=== PATIENT | male | born 1940 | race Caucasian/White ===

== ENCOUNTER 2018-06-15 16:46 | Inpatient (IN) | payer OTHER ==
[~2018-06-15] VITALS: Ht 177.8 cm; Wt 85.8 kg
[2018-06-15] MEDS ORDERED: ONDANSETRON 4 MG INJ IV STA (17:12)
[2018-06-15] MEDS ORDERED: morphine 4 MG/ML VIAL IV STA (17:12)
[2018-06-15] MEDS ORDERED: SODIUM CHLORIDE 0.9% 1L BAG IV* STA (17:46)
[2018-06-15] MEDS ORDERED: CEFTRIAXONE 1 GM/50 ML (PMX) 50 ML IVPB STA (17:46)
[2018-06-15] MEDS ORDERED: ONDANSETRON 4 MG INJ IV PRN (18:30)
[2018-06-15] MEDS ORDERED: ACETAMINOPHEN 325 MG TAB PO PRN (18:30)
--- NOTE | 2018-06-15 19:08 | ERD ---
ER Documentation Chief Complaint Chief Complaint prostate surgery 5 days ago, paina nd bleeding from rectum 09/25 HPI Patient is a 77-year-old male who presents with hematuria. The patient had his prostate removed [address] Alba. His Simon catheter was removed and he was urinating fine but then started with blood from the penis and clots. He had urinary retention. He was seen by Dr. Alba in the office and was sent to the emergency department for Simon catheter placement. Dr. Alba has placed the catheter and recommended three-way irrigation and admission. ROS All systems reviewed and are negative except as per history of present illness. Allergies Allergies: Coded Allergies: No Known Allergy (Unverified , 06/15/18) PMhx/Soc History of Surgery: Yes (PROSTATE SURGERY) Anesthesia Reaction: No Hx Neurological Disorder: No Hx Respiratory Disorders: No Hx Cardiac Disorders: No Hx Psychiatric Problems: No Hx Miscellaneous Medical Probl: No Hx Alcohol Use: No Hx Substance Use: No Hx Tobacco Use: No Smoking Status: Never smoker FmHx Family History: No diabetes Physical Exam Vitals Vital Signs Date Temp Pulse Resp B/P (MAP) Pulse Ox O2 O2 Flow FiO2 Time Delivery Rate 06/15/18 37.0 18:48 06/15/18 98.6 79 14 114/55 100 Room Air 18:32 (74) 06/15/18 98.6 101 18 110/55 96 17:02 (73) Physical Exam Const: Moderate distress Head: Atraumatic Eyes: Normal Conjunctiva ENT: Normal External Ears, Nose and Mouth. Neck: Full range of motion. No meningismus. Resp: Clear to auscultation bilaterally Cardio: Regular rate and rhythm, no murmurs Abd: Soft, non tender, non distended. Normal bowel sounds Skin: No petechiae or rashes Back: No midline or flank tenderness Ext: No cyanosis, or edema Neur: Awake and alert : Clots from penis with tenderness over the bladder, uncircumcised Result Diagram: 06/15/18 1728 06/15/18 1728 Results 24 hrs Laboratory Tests Test 06/15/18 17:28 06/15/18 18:51 White Blood Count 22.0 10^3/ul Red Blood Count 3.78 10^6/ul Hemoglobin 9.4 g/dl Hematocrit 29.8 % Mean Corpuscular Volume 78.8 fl Mean Corpuscular Hemoglobin 24.9 pg Mean Corpuscular Hemoglobin Concent 31.5 g/dl Red Cell Distribution Width 18.7 % Platelet Count 265 10^3/UL Mean Platelet Volume 11.3 fl Immature Granulocytes % 2.300 % Neutrophils % 88.3 % Lymphocytes % 5.1 % Monocytes % 4.1 % Eosinophils % 0.0 % Basophils % 0.2 % Nucleated Red Blood Cells % 0.0 /100WBC Immature Granulocytes # 0.500 10^3/ul Neutrophils # 19.4 10^3/ul Lymphocytes # 1.1 10^3/ul Monocytes # 0.9 10^3/ul Eosinophils # 0.0 10^3/ul Basophils # 0.0 10^3/ul Nucleated Red Blood Cells # 0.0 10^3/ul Prothrombin Time 14.8 Sec Prothrombin Time Ratio 1.2 INR International Normalized Ratio 1.15 Activated Partial Thromboplast Time 41.7 Sec Sodium Level 136 mmol/L Potassium Level 5.4 mmol/L Chloride Level 104 mmol/L Carbon Dioxide Level 18 mmol/L Anion Gap 14 Blood Urea Nitrogen 27 mg/dl Creatinine 2.74 mg/dl Est Glomerular Filtrat Rate mL/min mL/min Glucose Level 124 mg/dl Calcium Level 9.4 mg/dl POC Venous Lactate 1.3 mmol/L Current Medications Medications Dose Sig/Jessica Start Time Status Last (Trade) Ordered Route PRN Stop Time Admin Dose Reason Admin Morphine 4 mg ONCE STAT 06/15/18 DC 06/15/18 Sulfate IV 17:12 17:34 (morphine) 06/15/18 17:13 Ondansetron 4 mg ONCE STAT 06/15/18 DC 06/15/18 HCl (Zofran IV 17:12 17:34 Inj) 06/15/18 17:13 Sodium 2,650 ml BOLUS OVER 2 06/15/18 DC 06/15/18 Chloride HOURS STAT 17:46 17:46 (NS) IV* 06/15/18 17:47 Ceftriaxone 50 ml @ ONCE STAT 06/15/18 DC 06/15/18 Sodium 100 mls/hr IVPB 17:46 17:46 06/15/18 18:15 Ondansetron 4 mg BRIDGE ORDER 06/15/18 06/15/18 HCl (Zofran PRN IV 18:30 06/16/18 18:48 Inj) NAUSEA/VOMITI 18:29 NG 650 mg ER BRIDGE 06/15/18 06/15/18 Acetaminophen PRN PO 18:30 06/16/18 18:48 (Tylenol .MILD PAIN 18:29 Tab) 1-3 OR TEMP Procedures/MDM Sepsis Documentation: Patient's infectious symptoms have not stabilized and the patient is at risk of rapid decompensation. The patient will be admitted for careful hydration, antibiotic therapy, and infectious source control. SEVERE SEPSIS CRITERIA: Infectious source: Epididymitis End organ damage indicated by: Creatinine greater than 2 SEPSIS MANAGEMENT Time of recognition of sepsis: 1727. Time of recognition of severe sepsis: 1727. Time of recognition of septic shock: No septic shock at this time. 3 HOUR BUNDLE Blood cultures x 2 before broad-spectrum antibiotics: Yes 30 ml/kg NS bolus completed Initial lactate 1.4 Repeat lactate pending SEPTIC SHOCK ASSESSMENT: No lactic acid > 4.0 No persistent hypotension (SBP < 90 or 40 mmHg drop, MAP < 65) despite 30 mL/kg IV fluid bolus VOLUME REASSESSMENT FOR SEPTIC SHOCK: No septic shock at this time PERSISTENT HYPOTENSION TREATMENT: Comfort care no Central line not Required Vasopressor started not required I considered further perfusion assessment with CVP measurement, SCVO2, bedside ultrasound volume assessment, passive leg raise, trial of further fluid bolus. And proceeded with 30 ml/kg fluid bolus of NSS, broad spectrum antibiotics, and admission. The patient will be admitted to a medical surgical bed to the care of Dr. Thapa and will be seen by urology while admitted. CRITICAL CARE Critical care time 35 minutes Emergent fluid management while maintaining close respiratory support. Provision of immediate and broad-spectrum antibiotic therapy. Simultaneous assessment for possible sources in order to direct targeted therapy. Consideration for invasive and chemical support to prevent cardiopulmonary collapse. Critical care time is independent of procedures performed. Departure Diagnosis: Primary Impression: Acute epididymitis Additional Impressions: Hematuria Hematuria type: unspecified type Qualified Codes: R31.9 - Hematuria, unspecified Severe sepsis Condition: GABRIELA Hansen MD Jun 15, 2018 19:08
--- NOTE | 2018-06-15 19:43 | CONS ---
Assessment/Plan Assessment/Plan Hospital Course (Demo Recall) 77-year-old male who was having hematuria and urinary retention. He underwent suprapubic prostatectomy about 10 days earlier. He was discharged home and on June 14, 2018 he came into the office and I removed his murtaza and the Simon catheter. The patient was voiding well during the day however around 2 AM at night he had a blood clot and started bleeding in his urine. He went to the [place] urgent care. They inserted the catheter and had blood. I was called and I had him come to the office. I inserted a 22 [place] catheter and try to irrigate the bladder however since he was going to need to continuous bladder irrigation he needs to be admitted to the hospital I sent him to the emergency room [facility] and saw him in the emergency room, inserted a 24 [place] three-way Simon catheter. I irrigated the clots out of the bladder and started him on continuous bladder irrigation. I put the catheter on traction to try to tamponade any bleeder. The balloon of the catheter is inflated with 60 mL of sterile water. We will keep the irrigation of the bladder and if the urine is clear release the traction first then if the urine remains clear stop the irrigation. If the urine remains clear that he will be discharged home with a Simon catheter and he will follow-up with my office around June 28, 2018. Consultation Date/Type/Reason Admit Date/Time June 15, 2018 Date of Consultation: Jun 15, 2018 Type of Consult Urology Reason for Consultation Gross hematuria, patient status post suprapubic prostatectomy about 10 days earlier. Requesting Provider: HARISH SRINIVASAN MD Date/Time of Note DATE: 06/15/18 TIME: 19:34 Hx of Present Illness 77-year-old male who was having hematuria and urinary retention. He underwent suprapubic prostatectomy about 10 days earlier. He was discharged home and on June 14, 2018 he came into the office and I removed his murtaza and the Simon catheter. The patient was voiding well during the day however around 2 AM at night he had a blood clot and started bleeding in his urine. He went to the [place] urgent care. They inserted the catheter and had blood. I was called and I had him come to the office. I inserted a 22 [place] catheter and try to irrigate the bladder however since he was going to need to continuous bladder irrigation he needs to be admitted to the hospital I sent him to the emergency room but [facility] and saw him in the emergency room, inserted a 24 [place] three-way Simon catheter. I irrigated the clots out of the bladder and started him on continuous bladder irrigation. I put the catheter on traction to try to tamponade any bleeder. The balloon of the catheter is inflated with 60 mL of sterile water. Past Medical History Medications Current Medications Ondansetron HCl (Zofran Inj) 4 mg BRIDGE ORDER PRN IV NAUSEA/VOMITING Last administered on 06/15/18at 18:48; Admin Dose 4 MG; Start 06/15/18 at 18:30; Stop 06/16/18 at 18:29 Acetaminophen (Tylenol Tab) 650 mg ER BRIDGE PRN PO .MILD PAIN 1-3 OR TEMP Last administered on 06/15/18at 18:48; Admin Dose 650 MG; Start 06/15/18 at 18:30; Stop 06/16/18 at 18:29 Allergies: Coded Allergies: No Known Allergy (Unverified , 06/15/18) Past Surgical History Past Surgical Hx: other (Suprapubic prostatectomy.) Social History Smoking Status: Never smoker Exam/Review of Systems Exam Vitals Vital Signs Date Temp Pulse Resp B/P (MAP) Pulse Ox O2 O2 Flow FiO2 Time Delivery Rate 06/15/18 37.0 18:48 06/15/18 79 14 114/55 100 Room Air 18:32 (74) Constitutional: alert Psych: no complaints Head: atraumatic Eyes: nl conjunctiva ENMT: nl external ears & nose Neck: supple Respiratory: normal air movement; No wheezing Gastrointestinal: soft Genitourinary - Male: other (Suprapubic tenderness and gross hematuria. The suprapubic incision is healing well and no sign of infection. However the patient does have tender very sensitive left testicle possible left epididymitis.) Musculoskeletal: nl extremities to inspection Extremities: No calf tenderness Results Result Diagram: 06/15/18 1728 06/15/18 1728 Results 24hrs Laboratory Tests Test 06/15/18 17:28 06/15/18 18:46 06/15/18 18:51 White Blood Count 22.0 H Red Blood Count 3.78 L Hemoglobin 9.4 L Hematocrit 29.8 L Mean Corpuscular Volume 78.8 L Mean Corpuscular Hemoglobin 24.9 L Mean Corpuscular Hemoglobin Concent 31.5 L Red Cell Distribution Width 18.7 H Platelet Count 265 Mean Platelet Volume 11.3 H Immature Granulocytes % 2.300 H Neutrophils % 88.3 H Lymphocytes % 5.1 L Monocytes % 4.1 Eosinophils % 0.0 Basophils % 0.2 Nucleated Red Blood Cells % 0.0 Immature Granulocytes # 0.500 H Neutrophils # 19.4 H Lymphocytes # 1.1 Monocytes # 0.9 Eosinophils # 0.0 Basophils # 0.0 Nucleated Red Blood Cells # 0.0 Prothrombin Time 14.8 Prothrombin Time Ratio 1.2 INR International Normalized Ratio 1.15 Activated Partial Thromboplast Time 41.7 H Sodium Level 136 Potassium Level 5.4 H Chloride Level 104 Carbon Dioxide Level 18 L Anion Gap 14 H Blood Urea Nitrogen 27 H Creatinine 2.74 H Est Glomerular Filtrat Rate mL/min Glucose Level 124 Calcium Level 9.4 Lactic Acid Level 1.2 POC Venous Lactate 1.3 Medications Medication Current Medications Ondansetron HCl (Zofran Inj) 4 mg BRIDGE ORDER PRN IV NAUSEA/VOMITING Last administered on 06/15/18at 18:48; Admin Dose 4 MG; Start 06/15/18 at 18:30; Stop 06/16/18 at 18:29 Acetaminophen (Tylenol Tab) 650 mg ER BRIDGE PRN PO .MILD PAIN 1-3 OR TEMP Last administered on 06/15/18at 18:48; Admin Dose 650 MG; Start 06/15/18 at 18:30; Stop 06/16/18 at 18:29 ASHLEY VAUGHAN MD Jun 15, 2018 19:43
[2018-06-15] MEDS ORDERED: AMLO-147 PO (22:19)
[2018-06-15] MEDS ORDERED: ALLO300T2 PO (22:19)
[2018-06-15] MEDS ORDERED: LISI-471 PO (22:19)
[2018-06-15 22:33] VITALS: Ht 177.8 cm; Wt 85.8 kg
[2018-06-15 22:51] VITALS: BP 122/57; PULSE 83; RESP 20
[2018-06-15] MEDS ORDERED: ZOLPIDEM 5 MG TAB PO PRN (23:00)
[2018-06-15] MEDS: DEXTROSE 5%-0.45% NACL 1,000 ML IV SCH (23:54)
[2018-06-16 01:59] VITALS: BP 114/56; PULSE 69; RESP 20
[2018-06-16 08:23] VITALS: BP 128/60; PULSE 77; RESP 16
[2018-06-16] MEDS ORDERED: CEFTRIAXONE 1 GM INJ IVPB SCH (09:00)
[2018-06-16] MEDS: AMLODIPINE 10 MG TAB PO SCH (09:00)
--- NOTE | 2018-06-16 09:06 | CONS ---
DATE OF ADMISSION: 06/15/2018 DATE OF CONSULTATION: 06/16/2018 SUBJECTIVE: The patient is status post open prostatectomy with subsequent gross hematuria and epidid ymitis. The patient is currently on Rocephin overnight. The patient has been doing well without any noted difficulty. The patient's CBI initially was on traction this morning. He continues on CBI wi thout any traction. PHYSICAL EXAMINATION: GENERAL: Comfortable in bed. ABDOMEN: Soft, nondistended, nontender, no palpable masses. Midline wound clean, dry and intact. F lank, no CVA tenderness, no masses. GENITALIA: Normal shaft penis. Normal scrotum. Left testicle is firm and indurated and enlarged an d tender. Normal right testicle, slow CBI draining light pink urine. LABORATORY DATA: Yesterday, the patient's white count of 22,000. Today, his white count is 11,000, hemoglobin 9.4 yesterday, today is 7.6. Creatinine yesterday 2.7, today creatinine is 2.0, blood pre ssure 114/56, respirations 20, heart rate 69, temperature 97.9. CBI was discontinued and Simon robert ter was irrigated, multiple clots were removed, but these appeared to be chronic in nature. CBI was reinitiated and efflux was noted to be clear. This was left off of gravity drainage. IMPRESSION: Gross hematuria status post open prostatectomy epididymitis. PLAN: Continue CBI, transfusion as per medicine, scrotal ultrasound. Continue Rocephin. Dictated By: MARYCHUY SHAW MD EGR/NTS Conf#: [id number] DID#: [id number] CC: MARYCHUY SHAW MD; ASHLEY VAUGHAN MD; HARISH SRINIVASAN MD;*EndCC*
--- NOTE | 2018-06-16 11:26 | HP ---
DATE OF ADMISSION: 06/15/2018 CHIEF COMPLAINT: Bloody urine. HISTORY OF PRESENT ILLNESS: A 77-year-old male status post suprapubic prostatectomy about 10 days pr ior to admission, presented to emergency room with persistent gross hematuria. The patient was seen in the office by Dr. Vaughan, his urologist and referred to the emergency room. The patient underwen t Simon catheter revision with irrigation of blood clots. Continuous bladder irrigation was ordered. The patient denies any abdominal pain or flank pain. Initial creatinine was 2.74. This improved t o 2 by the following day[place] [address]. This improved to 11,000 by the following day. The patient was noted to have a drop in his hemoglobin to 7.6. PAST MEDICAL HISTORY: 1. Benign prostatic hyperplasia. 2. Status post recent suprapubic prostatectomy. 3. Hypertension. 4. Gout. MEDICATIONS PRIOR TO ADMISSION: 1. Amlodipine 10 mg daily. 2. Lisinopril 20 mg daily. 3. Allopurinol 300 mg daily. PHYSICAL EXAMINATION: GENERAL: Well-developed, well-nourished male who is in no apparent distress. VITAL SIGNS: Stable. He is afebrile. HEENT: Extraocular muscles are intact. Pupils are equal and reactive to light bilaterally. Sclerae are anicteric. Oropharynx is clear and moist. NECK: Supple, no JVD, no carotid bruit. CHEST: Clear to auscultation bilaterally. CARDIAC: Regular rate and rhythm. No murmurs, rubs or gallops. ABDOMEN: Soft, nontender, nondistended, normoactive bowel sounds. A Simon catheter in place with cr anberry colored urine. EXTREMITIES: No clubbing, cyanosis, or edema. NEUROLOGICAL: Grossly the nonfocal. ASSESSMENT: 1. A 77-year-old male with a gross hematuria post suprapubic prostatectomy. 2. Status post suprapubic prostatectomy about 10 days prior to admission. 3. Acute epididymitis. 4. Hypertension. 5. Acute kidney injury, improved. 6. Acute blood loss anemia. PLAN: 1. Admit to med/surg for continuous bladder irrigation. 2. Continue Rocephin. 3. Transfuse 1 unit of packed RBCs. 4. Monitor CBC. 5. Urology followup is appreciated. Dictated By: HARISH SHAH/BETSY Conf#: [id number] DID#: [id number] CC: HARISH SRINIVASAN MD; ASHLEY VAUGHAN MD;*EndCC*
[2018-06-16] MEDS: DEXTROSE 5%-0.45% NACL 1,000 ML IV SCH (13:09)
[2018-06-16] MEDS: ACETAMINOPHEN 325 MG TAB PO PRN ×2 (14:14→23:26)
[2018-06-16 15:19] VITALS: BP 124/64; PULSE 78; RESP 18
[2018-06-16] MEDS: CEFTRIAXONE 1 GM/NS 50 ML IVPB SCH (16:27)
[2018-06-16 19:48] VITALS: BP 96/46; PULSE 76; RESP 18
[2018-06-17] MEDS ORDERED: VANCOMYCIN IV PER PHARMACY XX SCH (01:30)
[2018-06-17] MEDS: DEXTROSE 5%-0.45% NACL 1,000 ML IV SCH ×2 (01:40→03:07)
[2018-06-17 02:12] VITALS: BP 110/52; PULSE 73; RESP 17
[2018-06-17] MEDS ORDERED: VANCOMYCIN HCL 1.75 GM in SOD CHLORIDE 0.9% 500 ML IVPB ONE (02:30)
[2018-06-17] MEDS: ACETAMINOPHEN 325 MG TAB PO PRN (07:39)
[2018-06-17 08:00] VITALS: BP 132/60; PULSE 75; RESP 18
--- NOTE | 2018-06-17 08:16 | PDOCDIS ---
Discharge Instructions DIAGNOSIS Discharge Diagnosis Hematuria CONDITION [id number] Patient Condition: [id number] Good HOME CARE INSTRUCTIONS: [id number] Diet Instructions: Tahir Regular ACTIVITY: Alfredo Activity Restrictions: Lpsbd7n No Weight Bearing [id number] Bathing Restrictions: Ybsqu2a Shower FOLLOW UP/APPOINTMENTS Follow-up Plan Call Dr Alba for follow up REFERRALS Alfredo Referring Provider: ASHLEY Estrada MD OTHER ORDERS: Other Orders: DC to home after transfusion with Simon to leg bag SCHOOL/WORK RELEASE May return to School/Work on: Aug 02, 2018 MARYCHUY SHAW June 17, 2018 08:16
[2018-06-17] MEDS: AMLODIPINE 10 MG TAB PO SCH (09:33)
[2018-06-17 14:00] VITALS: BP 129/61; PULSE 61; RESP 18
[2018-06-17] MEDS ORDERED: ALPRAZOLAM 0.5 MG TAB PO PRN (16:30)
[2018-06-17] MEDS: CEFTRIAXONE 1 GM/NS 50 ML IVPB SCH (18:36)
[2018-06-17 20:00] VITALS: BP 134/60; PULSE 76; RESP 18
--- NOTE | 2018-06-17 21:36 | DS ---
DATE OF ADMISSION: 06/15/2018 DATE OF DISCHARGE: 06/17/2018 HOSPITAL COURSE: Patient is status post suprapubic prostatectomy under the care of Dr. Alba, who represented secondary to gross hematuria status post trial of void. Since yesterday, he has been doi ng very well. The CBI is dripping very slowly and then it was discontinued early this morning. The efflux of urine remained clear. There is no shortness of breath. The patient has been transfused 1 unit and will be receiving a second unit this morning. The patient was initiated on ceftriaxone for epididymitis. Overall, he is feeling well. PHYSICAL EXAMINATION: VITAL SIGNS: Blood pressure 110/52, heart rate 73, respirations 17, temperature 98.4. ABDOMEN: Soft, nondistended, nontender. No palpable masses. Flank, no CVA tenderness, no masses. GENITALIA: Normal shaft of penis, normal scrotum with markedly decrease in induration and tenderness of the left hemiscrotum. There is resolution of erythema. The size of the left testicle and epidid ymis are decreased in size. Simon catheter with CBI discontinued is very light pink to clear. No no rubén clots. EXTREMITIES: No calf tenderness. DIAGNOSTIC DATA: Scrotal ultrasound two echogenic nodules in the right testicle and enlarged left ep ididymis. White blood count 8000, hemoglobin 8.7. IMPRESSION: Gross hematuria status post suprapubic prostatectomy epididymitis. PLAN: The patient to receive second unit and then may be discharged to home later today with Simon t o leg bag. Discharge ceftriaxone. Cipro 500 mg p.o. b.i.d. x7 days' time, Daisetta 5/325 one tab p.o. q.6 hours p.r.n., dispense #30. Light activity, no heavy lifting more than 5 pounds. Hydration. Fo llow up with Dr. Alba for a trial of void. Resume all home medications. Please reconsult as need ed. Dictated By: MARYCHUY MORFIN/NTS Conf#: [id number] DID#: [id number]
[2018-06-18 02:00] VITALS: BP 145/66; PULSE 87; RESP 18
[2018-06-18] MEDS ORDERED: VANCOMYCIN 750 MG (PMX) 250 ML IVPB SCH (03:00)
[2018-06-18] MEDS: DEXTROSE 5%-0.45% NACL 1,000 ML IV SCH ×3 (03:11→22:07)
[2018-06-18 08:00] VITALS: BP 128/62; PULSE 88; RESP 18
[2018-06-18] MEDS: AMLODIPINE 10 MG TAB PO SCH (08:49)
--- NOTE | 2018-06-18 09:22 | PDOCDIS ---
Discharge Instructions DIAGNOSIS Discharge Diagnosis Hematuria CONDITION [id number] Patient Condition: [id number] Good HOME CARE INSTRUCTIONS: Odshk6Ye Diet Instructions: Ctchr9c y No Weight Bearing Alfredo Bathing Restrictions: Ozoqy3b Shower FOLLOW UP/APPOINTMENTS Follow-up Plan Call Dr Alba for follow up pcp 1 week REFERRALS Alfredo Referring Provider: ASHLEY Estrada MD SCHOOL/WORK RELEASE May return to School/Work on: Aug 02, 2018 HARISH SRINIVASAN MD June 18, 2018 09:22
[2018-06-18] MEDS ORDERED: NA PHOSPHATE/BIPHOS 133 ML ENEMA PR ONE (09:30)
[2018-06-18] MEDS: LACTULOSE 30ML CUP PO ONE ×2 (10:27→10:28)
[2018-06-18 14:00] VITALS: BP 132/62; PULSE 84; RESP 18
[2018-06-18] MEDS: CEFTRIAXONE 1 GM/NS 50 ML IVPB SCH (16:03)
[2018-06-18 20:00] VITALS: BP 131/66; PULSE 81; RESP 18
--- NOTE | 2018-06-18 21:14 | DS ---
DATE OF ADMISSION: 06/15/2018 DATE OF DISCHARGE: DISCHARGE DIAGNOSES: 1. Gross hematuria. 2. Status post suprapubic prostatectomy 10 days prior to admission. 3. Hypertension. 4. Gout. HOSPITAL COURSE: This 77-year-old very pleasant male status post suprapubic prostatectomy at [facility] about 10 days prior to admission presented to the emergency room with persistent gross hematuria. The patient was evaluated by Dr. Alba. Simon catheter was placed. The patient received continuous bladder irrigation for several days. He was followed by Dr. Rankin who was coveri ng for Dr. Alba. There was a slight drop in hemoglobin. Patient received 1 unit of packed RBC. Repeat hemoglobin was 8.9. He also had acute kidney injury with creatinine as high as 2.7. His vance l function improved significantly. On the day of discharge, BUN was 14 and creatinine was 1.22. The patient is in a stable condition for discharge. Simon catheter will remain in place until he is see n by Dr. Alba on 06/28/2018. Home health nurse was requested. MEDICATIONS ON DISCHARGE: As follows: 1. Allopurinol 300 mg daily. 2. Amlodipine 10 mg daily. 3. Lisinopril 20 mg daily. Dictated By: HARISH SHAH/BETSY Conf#: [id number] DID#: [id number]
[2018-06-18] MEDS ORDERED: VANCOMYCIN 1 GM 250 ML IVPB SCH (22:00)
[2018-06-19 02:00] VITALS: BP 147/72; PULSE 73; RESP 18
[2018-06-19] MEDS: DEXTROSE 5%-0.45% NACL 1,000 ML IV SCH (07:00)
[2018-06-19 08:00] VITALS: BP 131/62; PULSE 84; RESP 18
--- NOTE | 2018-06-19 08:33 | CONS ---
DATE OF ADMISSION: 06/15/2018 DATE OF CONSULTATION: 06/19/2018 TYPE OF CONSULTATION: Urology, Dr. Alba. The patient had an uneventful night. The patient was noted to have gross hematuria last evening and thus the continuous bladder irrigation was reinitiated. Approximately 2 hours ago, the continuous bl adder irrigation was discontinued. The patient has overall been doing well. There is no shortness o f breath or chest pain. Despite hematuria, there has been no clot retention. Yesterday the patient' s hemoglobin was 8.9 and today his hemoglobin is 8.9. He is eating solid food well. PHYSICAL EXAMINATION: VITAL SIGNS: Blood pressure 147/72, heart rate 73, temperature 98.1. ABDOMEN: Soft, nondistended, nontender. No palpable masses. Flank, no CVA tenderness, no masses. Midline wound clean, dry and intact. GENITALIA: Simon catheter draining clear urine. Normal scrotum. Normal shaft of penis. Decreased induration and tenderness of the left testicle. The Simon catheter was irrigated, multiple old clots were evacuated with remaining urine being clear. ASSESSMENT AND PLAN: Gross hematuria status post open prostatectomy, resolving epididymitis. PLAN: The patient is requesting to be discharged to home. It appears that the hematuria is not acut e in nature and he is hemodynamically stable with a stable blood count, requesting to be discharged t o home. PLAN: Okay for discharge to home with Simon to leg bag. Encourage hydration and light activity. Th e patient requested to follow up in the office on Thursday as Dr. Alba is out of town. The patient has been given the address of [address] [place] [address]. Office [facility] number [phone]. Patient was requested to come to the office at 9:00 a.m. Please reconsult a s needed. Dictated By: MARYCHUY SHAW MD EGR/NTS Conf#: [id number] DID#: [id number] CC: HARISH SRINIVASAN MD;*EndCC*
[2018-06-19] MEDS: AMLODIPINE 10 MG TAB PO SCH (08:42)
--- NOTE | 2018-06-19 08:45 | PDOCDIS ---
Discharge Instructions DIAGNOSIS Discharge Diagnosis Hematuria CONDITION [id number] Patient Condition: Olvvx9x Good HOME CARE INSTRUCTIONS: Xnhnp4Pl Diet Instructions: Xrxwq4d y Rest between Activity Avoid heavy lifting Djpvq1Bc Bathing Restrictions: Cafuh8k Shower FOLLOW UP/APPOINTMENTS Follow-up Plan Dr Rankin in [address] Alba for follow up pcp 1 week REFERRALS [id number] Agency Name and Phone Number: [id number] : [id number] ASHLEY ALBA MD SCHOOL/WORK RELEASE May return to School/Work on: Aug 02, 2018 HARISH SRINIVASAN MD June 19, 2018 08:45
--- NOTE | 2018-06-19 08:47 | PN ---
Date/Time of Note Date/Time of Note DATE: 06/19/18 TIME: 08:45 Subjective Doing well. No complaints of pain. Objective Vitals Vital Signs Date Temp Pulse Resp B/P (MAP) Pulse Ox O2 O2 Flow FiO2 Time Delivery Rate 06/19/18 98.1 73 18 147/72 99 02:00 (97) 06/16/18 Room Air 15:19 Intake and Output 06/18/18 06/18/18 06/19/18 1515:00 23:00 07:00 IntakeIntake Total 7450 ml 1250 ml 27712 ml OutputOutput Total 1300 ml 1550 ml 1300 ml BalanceBalance 6150 ml -300 ml 56513 ml Clear to auscultation bilaterally Regular rate and rhythm Soft nontender nondistended No clubbing cyanosis or edema Nonfocal Results Result Diagram: 06/19/18 0428 06/18/18 0504 Medications Medications Current Medications Amlodipine Besylate (Norvasc) 10 mg DAILY PO Last administered on 06/19/18at 08:42; Admin Dose 10 MG; Start 06/16/18 at 09:00 Dextrose/Sodium Chloride 1,000 ml @ 75 mls/hr [id number] IV Last administered on 06/18/18at 22:07; Admin Dose 75 MLS/HR; Start 06/15/18 at 23:00 Zolpidem Tartrate (Ambien) 5 mg HS MAY REPEAT X 1 PRN PO INSOMNIA; Start 06/15/18 at 23:00 Acetaminophen (Tylenol Tab) 650 mg Q4H PRN PO MILD PAIN(1-3)OR ELEVATED TEMP Last administered on 06/17/18at 07:39; Admin Dose 650 MG; Start 06/15/18 at 23:00 Ceftriaxone Sodium 50 ml @ 100 mls/hr Q24H IVPB Last administered on 06/18/18at 16:03; Admin Dose 100 MLS/HR; Start 06/16/18 at 16:00 Vancomycin HCl (Vanco Iv Per Pharmacy) VANCOMYCIN PER PHARMACY PER PROTOCOL XX ; Start 06/17/18 at 01:30 Alprazolam (Xanax) 0.5 mg Q6H PRN PO ANXIETY Last administered on 06/17/18at 16:42; Admin Dose 0.5 MG; Start 06/17/18 at 16:30 Vancomycin HCl 250 ml @ 125 mls/hr Q24H IVPB Last administered on 06/18/18at 22:07; Admin Dose 125 MLS/HR; Start 06/18/18 at 22:00 VTE Prophylaxis Risk score (from Ns)>0 risk: 6 SCD applied (from Ns): Yes Lines/Catheters IV Catheter Type: Saline Lock Johnson in Place: Yes Cont'd johnson catheter reason: urinary retention Assessment/Plan Assessment/Plan Gross hematuria, resolved Status post suprapubic prostatectomy 10 days prior to admission Patient was cleared by Dr. Rankin for discharge Home health nurse has been arranged He will have bladder irrigation at home in case he has recurrent gross hematuria Patient will follow-up with Dr. Rankin in 2 days HARISH SRINIVASAN MD June 19, 2018 08:47
[2018-06-19] MEDS: CEFTRIAXONE 1 GM/NS 50 ML IVPB SCH (15:27)
== END 2018-06-19 18:10 | disposition home health service (06) | DRG 696 ==
LOC: E/R 16:46 → PP2 18:03
PROVIDERS: ADMIT Internal Medicine; ATTEND Internal Medicine
PROC: 30233N1 Transfusion of Nonautologous Red Blood Cells into Peripheral Vein, Percutaneous Approach (ICD-10-PCS; principal; 2018-06-17)
DX: R31.0 Gross hematuria (principal); D62 Acute posthemorrhagic anemia; N45.1 Epididymitis; N17.9 Acute kidney failure, unspecified; Z90.79 Acquired absence of other genital organ(s); I10 Essential (primary) hypertension; M10.9 Gout, unspecified
CPT/HCPCS: 36415; 36430; 76870; 80048; 81001; 83605; 85025; 85610; 85730; 86644; 86850; 86870; 86880; 86900; 86901; 86902; 86906; 86920; 86971; 87081; 87086; 96374; 96375; J0696; J2270; J2405; J3370; J7030; J7040; J7042; P9016

== ENCOUNTER 2018-06-21 00:46 | Emergency (ER) | payer OTHER ==
[~2018-06-21] VITALS: Ht 177.8 cm; Wt 88.2 kg
[~2018-06-21 00:46] MED LIST: ALLO300T2 PO; AMLO-147 PO; LISI-471 PO
[2018-06-21 00:55] VITALS: Ht 177.8 cm; Wt 88.2 kg
--- NOTE | 2018-06-21 01:26 | ERD ---
ER Documentation Chief Complaint Chief Complaint left flank pain/blood in f/c x 1 day HPI 77-year-old male with recent prostatectomy, hospitalization and discharged on May 19. Patient states that he of his indwelling Simon catheter and had a sudden onset of inability to empty the bladder. He states that he was able to notice a large clot that was dislodged. He has improved symptoms upon arrival. He denies any fevers or chills, no other bleeding or bruising. Pain was initially 8 out of 10 and is now 0 out of 10. ROS All systems reviewed and are negative except as per history of present illness. Medications Home Meds Reported Medications Allopurinol* (Allopurinol*) 300 Mg Tablet, 300 MG PO DAILY for 90 Days, #90 TAKE 1 TABLET (300MG) BY ORAL ROUTE EVERY DAY 06/15/18 Lisinopril* (Lisinopril*) 20 Mg Tablet, 20 MG PO DAILY for 90 Days, #90 TAKE 1 TABLET BY MOUTH EVERY DAY 06/15/18 Amlodipine Besylate* (Amlodipine Besylate*) 10 Mg Tablet, 10 MG PO DAILY for 30 Days TAKE 1 TABLET BY MOUTH EVERY DAY 06/15/18 Allergies Allergies: Coded Allergies: No Known Allergy (Unverified , 06/15/18) PMhx/Soc History of Surgery: Yes (Prostate surgery 05/2018) Anesthesia Reaction: No Hx Neurological Disorder: No Hx Respiratory Disorders: No Hx Cardiac Disorders: Yes (HTN) Hx Psychiatric Problems: No Hx Miscellaneous Medical Probl: Yes (anemia, QUINAULT) Hx Alcohol Use: No (Used to drink; stop about one year ago) Hx Substance Use: No Hx Tobacco Use: No FmHx Family History: No diabetes Physical Exam Vitals Vital Signs Date Temp Pulse Resp B/P (MAP) Pulse Ox O2 O2 Flow FiO2 Time Delivery Rate 06/21/18 97.5 81 18 103/51 100 00:55 (68) Physical Exam General: Well developed, well nourished, no acute distress Head: Normocephalic, atraumatic. Eyes: EOM intact ENT: Moist mucous membranes Neck: Full ROM Respiratory: No respiratory distress Cardiovascular: Well perfused distally Abdominal: Nondistended, no significant superpubic abdominal tenderness rebound or guarding : Blood in the Simon catheter, no erosion or irritation around the glans penis MSK: No edema, no unilateral swelling, 5/5 strength Neurologic: Alert and oriented, moving all extremities, normal speech, steady gait Skin: No rash Psych: Normal mood Procedures/MDM The patient presents with gross hematuria. This is likely secondary to the recent surgery, indwelling Simon catheter. The patient had initial pain but has now complete resolution of pain. The Smion was flushed without blood or clot. It is draining without difficulty. The patient has no symptoms, benign exam. His recent blood work showed no evidence of thrombocytopenia or coagulopathy. I do not believe repeat blood testing is necessary. The patient can be safely discharged home with follow-up with Dr. Alba as planned. Return precautions discussed and understood. The patient does not have an identifiable emergent medical condition that warrants inpatient hospitalization at this time. The patient is deemed safe for discharge with outpatient follow-up. We discussed follow up with the patient's primary care doctor within 24 to 48 hours as needed. We also discussed return to the emergency room for worsening symptoms or worsening condition. Outpatient referral: Dr. Alba Departure Diagnosis: Primary Impression: Hematuria Hematuria type: gross Qualified Codes: R31.0 - Gross hematuria Condition: Stable Patient Instructions: Hematuria Referrals: ASHLEY ALBA MD Additional Instructions: Return for pain, bleeding, inability to empty bladder. Return to this facility in 2 DAYS for a follow-up exam.Return sooner if your condition worsens. SHABANA FOWLER MD June 21, 2018 01:26
[2018-06-21 01:27] VITALS: BP 121/71; PULSE 71; RESP 18
[2018-06-21] MEDS ORDERED: CIPR500T4 PO (05:55)
== END 2018-06-21 01:59 | disposition home or self-care (01) ==
LOC: E/R 00:46
DX: R31.0 Gross hematuria (principal); I10 Essential (primary) hypertension
CPT/HCPCS: 99283

== ENCOUNTER 2018-06-21 01:55 | Inpatient (IN) | payer OTHER ==
[~2018-06-21] VITALS: Ht 177.8 cm; Wt 81.6 kg
[2018-06-21] MEDS ORDERED: morphine 4 MG/ML VIAL IV STA (02:13)
[2018-06-21] MEDS ORDERED: ONDANSETRON 4 MG INJ IV STA (02:13)
[2018-06-21] MEDS ORDERED: ONDANSETRON 4 MG INJ IV PRN (03:00)
[2018-06-21] MEDS ORDERED: ACETAMINOPHEN 325 MG TAB PO PRN ×2 (03:00→08:00)
[2018-06-21] MEDS ORDERED: HYDROmorphONE 0.5 MG/0.5 ML SYG IV STA (03:29)
[2018-06-21] MEDS ORDERED: SODIUM CHLORIDE 0.9% 1L IRRIG IRR ONE (03:30)
--- NOTE | 2018-06-21 03:53 | ERD ---
ER Documentation Chief Complaint Chief Complaint recurrent hematuria while waiting for a ride in intake lobby HPI 77-year-old gentleman with recent prostatectomy who has an indwelling Simon catheter who was just recently evaluated for hematuria that resolved was discharged who has recurrence of gross hematuria and urinary obstruction. The patient describes 8 out of 10 suprapubic abdominal pain. He notes bleeding around the catheter itself without significant drainage. ROS All systems reviewed and are negative except as per history of present illness. Medications Home Meds Reported Medications Allopurinol* (Allopurinol*) 300 Mg Tablet, 300 MG PO DAILY for 90 Days, #90 TAKE 1 TABLET (300MG) BY ORAL ROUTE EVERY DAY 06/15/18 Lisinopril* (Lisinopril*) 20 Mg Tablet, 20 MG PO DAILY for 90 Days, #90 TAKE 1 TABLET BY MOUTH EVERY DAY 06/15/18 Amlodipine Besylate* (Amlodipine Besylate*) 10 Mg Tablet, 10 MG PO DAILY for 30 Days TAKE 1 TABLET BY MOUTH EVERY DAY 06/15/18 Allergies Allergies: Coded Allergies: No Known Allergy (Unverified , 06/15/18) PMhx/Soc History of Surgery: Yes (Prostate surgery 05/2018) Anesthesia Reaction: No Hx Neurological Disorder: No Hx Respiratory Disorders: No Hx Cardiac Disorders: Yes (HTN) Hx Psychiatric Problems: No Hx Miscellaneous Medical Probl: Yes (anemia, RAMONA) Hx Alcohol Use: No (Used to drink; stop about one year ago) Hx Substance Use: No Hx Tobacco Use: No Smoking Status: Never smoker FmHx Family History: No diabetes Physical Exam Vitals Vital Signs Date Temp Pulse Resp B/P (MAP) Pulse Ox O2 O2 Flow FiO2 Time Delivery Rate 06/21/18 89 13 109/60 100 Room Air 03:00 (76) 06/21/18 87 17 135/64 99 Room Air 02:30 (87) 06/21/18 97.9 83 18 107/56 100 01:57 (73) Physical Exam General: Very uncomfortable Head: Normocephalic, atraumatic. Eyes: Pupils equally reactive, EOM intact ENT: Moist mucous membranes Neck: Supple, no lymphadenopathy Respiratory: Lungs clear bilaterally, no distress Cardiovascular: RRR, no murmurs, rubs, or gallops Abdominal: Soft, suprapubic fullness : Limited drainage in Simon bag MSK: No edema, no unilateral swelling, 5/5 strength Neurologic: Alert and oriented, moving all extremities, normal speech, no focal weakness, no cerebellar signs Skin: No rash Psych: Normal mood Result Diagram: 06/21/18 0243 06/21/18 0243 Results 24 hrs Laboratory Tests Test 06/21/18 02:43 06/21/18 02:47 White Blood Count 17.7 10^3/ul Red Blood Count 3.65 10^6/ul Hemoglobin 9.2 g/dl Hematocrit 29.1 % Mean Corpuscular Volume 79.7 fl Mean Corpuscular Hemoglobin 25.2 pg Mean Corpuscular Hemoglobin Concent 31.6 g/dl Red Cell Distribution Width 18.6 % Platelet Count 279 10^3/UL Mean Platelet Volume 11.4 fl Immature Granulocytes % 4.700 % Neutrophils % 78.8 % Lymphocytes % 10.1 % Monocytes % 5.4 % Eosinophils % 0.7 % Basophils % 0.3 % Nucleated Red Blood Cells % 0.0 /100WBC Immature Granulocytes # 0.830 10^3/ul Neutrophils # 14.0 10^3/ul Lymphocytes # 1.8 10^3/ul Monocytes # 1.0 10^3/ul Eosinophils # 0.1 10^3/ul Basophils # 0.1 10^3/ul Nucleated Red Blood Cells # 0.0 10^3/ul Prothrombin Time 14.3 Sec Prothrombin Time Ratio 1.1 INR International Normalized Ratio 1.10 Activated Partial Thromboplast Time 40.8 Sec Sodium Level 137 mmol/L Potassium Level 4.8 mmol/L Chloride Level 105 mmol/L Carbon Dioxide Level 19 mmol/L Anion Gap 13 Blood Urea Nitrogen 36 mg/dl Creatinine 2.18 mg/dl Est Glomerular Filtrat Rate mL/min mL/min Glucose Level 110 mg/dl Calcium Level 9.5 mg/dl Urine Color RED Urine Clarity TURBID Urine pH 8.0 Urine Specific [place] 1.034 Urine Ketones NEGATIVE mg/dL Urine Nitrite NEGATIVE mg/dL Urine Bilirubin NEGATIVE mg/dL Urine Urobilinogen NEGATIVE mg/dL Urine Leukocyte Esterase NEGATIVE Jerrell/ul Urine Microscopic RBC > 182 /HPF Urine Microscopic WBC 13 /HPF Urine Bacteria FEW /HPF Urine Hemoglobin 3+ mg/dL Urine Glucose 2+ mg/dL Urine Total Protein 3+ mg/dl Current Medications Medications Dose Sig/Jessica Start Time Status Last (Trade) Ordered Route PRN Stop Time Admin Dose Reason Admin Morphine 4 mg ONCE STAT 06/21/18 DC 06/21/18 Sulfate IV 02:13 06/21/18 02:55 (morphine) 02:14 Ondansetron 4 mg ONCE STAT 06/21/18 DC 06/21/18 HCl (Zofran IV 02:13 06/21/18 02:55 Inj) 02:14 Ondansetron 4 mg BRIDGE ORDER 06/21/18 HCl (Zofran PRN IV 03:00 06/22/18 Inj) NAUSEA/VOMITI 02:59 NG 650 mg ER BRIDGE 06/21/18 Acetaminophen PRN PO 03:00 06/22/18 (Tylenol .MILD PAIN 02:59 Tab) 1-3 OR TEMP Sodium 2,000 ml CONT BLADDER 06/21/18 DC Chloride IRRIG ONCE 03:30 06/21/18 (NS (Irrig)) IRR 03:38 0.5 mg ONCE STAT 06/21/18 DC 06/21/18 Hydromorphone IV 03:29 06/21/18 03:36 HCl 03:31 (Dilaudid) Lorazepam 0.5 mg ONCE ONCE 06/21/18 DC 06/21/18 (Ativan) IV 04:00 06/21/18 04:11 04:01 Procedures/MDM LAB INTERPRETATION: I reviewed the laboratory testing and it shows leukocytosis secondary to stress response MEDICAL DECISION MAKING: Patient presents with recurrence of hematuria. Patient likely requires continuous bladder irrigation ER COURSE: * The patient continued to have pain. His bladder irrigation was difficult and not improving with turbulent flow and continuous bladder irrigation. Dr. Rankin was notified on behalf of Dr. Alba. I asked to change the catheter, he agrees. * Three-way catheter exchange, now good flow. The patient will be admitted for continuous bladder irrigation and urology consultation. * Leukocytosis secondary to stress response. No fever. No indication for antibiotics. This is not consistent with infectious process. CONSULTATION: Urology on-call: Dr. Rankin DISPOSITION PLAN: Accepting care team and consultations: I discussed the current laboratory data, diagnostic imaging and emergency care provided. Admitting team: Dr. Thapa Admitting team indication: Insurance directed Departure Diagnosis: Primary Impression: Hematuria Hematuria type: gross Qualified Codes: R31.0 - Gross hematuria Additional Impressions: Leukocytosis Leukocytosis type: unspecified Qualified Codes: D72.829 - Elevated white blood cell count, unspecified Acute urinary retention Condition: Stable SHABANA FOWLER MD June 21, 2018 03:53
[2018-06-21] MEDS ORDERED: LORAZEPAM 2 MG INJ IV ONE (04:00)
[2018-06-21] MEDS ORDERED: SODIUM CHLORIDE 0.9% 1L IRRIG IRR STA (04:40)
[2018-06-21] MEDS ORDERED: SODIUM CHLORIDE 0.9% 1L IRRIG IRR SCH (05:00)
[2018-06-21] MEDS ORDERED: SODIUM CHLORIDE 0.9% IRR SCH (05:30)
[2018-06-21 05:35] VITALS: BP 105/53; PULSE 82; RESP 18
[2018-06-21 05:49] VITALS: Ht 177.8 cm; Wt 81.6 kg
[2018-06-21] MEDS ORDERED: CIPR500T4 PO (05:55)
[2018-06-21 08:00] VITALS: BP 115/59; PULSE 91; RESP 20
[2018-06-21] MEDS ORDERED: morphine 2 MG INJ IV STA (08:28)
[2018-06-21] MEDS ORDERED: CEFTRIAXONE 1 GM/50 ML (PMX) 50 ML IVPB SCH (08:30)
[2018-06-21] MEDS ORDERED: BELLADONNA ALK/OPIUM SUPP PR PRN (09:00)
[2018-06-21] MEDS ORDERED: BELLADONNA ALK/OPIUM SUPP PR ONE (09:00)
[2018-06-21] MEDS: CEFTRIAXONE 1 GM/50 ML (PMX) 50 ML IVPB SCH (09:21)
[2018-06-21] MEDS: ALLOPURINOL 300 MG TAB PO SCH (09:23)
[2018-06-21] MEDS: LISINOPRIL 20 MG TAB PO SCH (09:24)
[2018-06-21] MEDS: AMLODIPINE 10 MG TAB PO SCH (09:24)
[2018-06-21] MEDS: FINASTERIDE 5 MG TAB PO SCH (09:24)
--- NOTE | 2018-06-21 10:16 | SP ---
DATE OF PROCEDURE: 06/21/2018 SUBJECTIVE: The patient was discharged to home yesterday and then re-presented back to the emergency room and clot retention. The Simon catheter was not working and thus a new 3-way Simon catheter was inserted. He was readmitted back to the floor this morning. The Simon catheter is not draining and he is in a large amount of pain. OBJECTIVE: VITAL SIGNS: Blood pressure 105/53, heart rate 82, respiration rate 18, temperature 97.3. ABDOMEN: Soft. Bladder is distended. Midline wound clean, dry and intact. GENITALIA: Passing urine around the 3-way Simon catheter, 3-way, Simon catheter not working. Scrotu m indurated left testicle, which is tender. It is a decrease in size. LABORATORY DATA: White blood count 17.7, hemoglobin 9.2, creatinine 2.2. PROCEDURE: After verbal consent was obtained an attempt to irrigate the catheter was undertaken, but the catheter is not working and this 3-way Simon catheter was removed without any noted difficulty. A 24 Bengali 3-way Simon catheter was easily inserted into the bladder. 200 mL of light pink urine w as drained. The Simon catheter was irrigated, multiple very small clots were removed and continuous bladder irrigation was reinitiated with efflux being clear. The patient was given morphine prior to the above. IMPRESSION: Gross hematuria and clot retention status post open prostatectomy for larger than 200 gr am prostate. PLAN: IV hydration. Initiate Flomax 0.4 mg 30 minutes after dinner, Proscar 5 mg p.o. daily, reinit iate Rocephin [address] scan of abdomen and pelvis without contrast. Follow up labs. Of note, the patient's hemoglobin has been on a progressive rise since his prior transfusion. There robles s not appear to be any acute blood loss at this time. We will monitor closely. Dictated By: MARYCHUY SHAW MD EGR/NTS Conf#: [id number] DID#: [id number] CC: HARISH SRINIVASAN MD; MARYCHUY SHAW MD;*EndCC*
[2018-06-21 14:00] VITALS: BP 106/53; PULSE 76; RESP 18
--- NOTE | 2018-06-21 14:25 | HP ---
DATE OF ADMISSION: 06/21/2018 CHIEF COMPLAINT: Bloody urine and difficulty urinating. HISTORY OF PRESENT ILLNESS: A 77-year-old male with history of a very large prostate, status post menendez prapubic prostatectomy about 2 weeks prior to admission, returned to emergency room with complaint of gross hematuria and difficulty urinating. The patient was discharged home with a Simon catheter 2 d ays prior to admission; however, he had recurrent gross hematuria and clot retention. Initial evalua tion revealed white blood cell count of 17.7 and hemoglobin of 9.2. Urine showed pristine white cell s. The patient was seen by Dr. Shaw and Simon catheter was revised. Continuous bladder irrigation was ordered. PAST MEDICAL HISTORY: 1. BPH. 2. Gout. 3. Hypertension. PAST SURGICAL HISTORY: Status post suprapubic prostatectomy about 2 weeks. MEDICATIONS PRIOR TO ADMISSION: 1. Allopurinol 300 mg daily. 2. Lisinopril 20 mg daily. 3. Norvasc 10 mg daily. PHYSICAL EXAMINATION: GENERAL: Well-developed, well-nourished male who is in no apparent distress. VITAL SIGNS: Stable. He is afebrile. HEENT: Extraocular muscles are intact. Pupils are equal and reactive to light bilaterally. Sclerae are anicteric. Oropharynx is clear and moist. NECK: Supple. No JVD, no carotid bruits. LUNGS: Clear to auscultation bilaterally. CARDIAC: Regular rate and rhythm. No murmurs, rubs or gallops. ABDOMEN: Soft, nontender, nondistended, normoactive bowel sounds. GENITOURINARY: Simon catheter in place with nando-colored urine. EXTREMITIES: No clubbing, cyanosis or edema. NEUROLOGICAL: Nonfocal. LABORATORY DATA: BUN and creatinine are 36 and 2.18. ASSESSMENT: 1. A 77-year-old male with recurrent gross hematuria. 2. Status post suprapubic prostatectomy 2 weeks prior to admission for very large prostate. 3. Acute kidney injury. 4. Leukocytosis. PLAN: Admit to med/surg. Resume continuous bladder irrigation. Start IV Rocephin. Resume all home medications. Case was discussed with Dr. Shaw, who is covering for Dr. Alba. Dictated By: HARISH SHAH/BETSY Conf#: [id number] DID#: [id number] CC: MARYCHUY SHAW MD;*End*
[2018-06-21 20:00] VITALS: BP 113/53; PULSE 75; RESP 18
[2018-06-21] MEDS: TAMSULOSIN (SR) 0.4 MG CAP PO SCH (20:16)
[2018-06-22 02:00] VITALS: BP 105/54; PULSE 73; RESP 18
[2018-06-22 08:00] VITALS: BP 146/63; PULSE 82; RESP 18
--- NOTE | 2018-06-22 08:11 | CONS ---
DATE OF ADMISSION: 06/21/2018 DATE OF CONSULTATION: 06/22/2018 SUBJECTIVE: The patient continues with gross hematuria. Additionally, he is leaking around his Fole y catheter. He is comfortable. PHYSICAL EXAMINATION: VITAL SIGNS: Blood pressure 105/54, heart rate 73, respirations 18, temperature 98.2. ABDOMEN: Soft, nondistended, nontender, no palpable masses. Flank, no CVA tenderness, no masses. GENITALIA: Normal shaft of penis, decrease in induration and tenderness of the left testicle. There is no erythema. Normal right testicle. Continuous bladder irrigation with positive gross hematuria . The Simon catheter was irrigated. Multiple small little clots have been evacuated with continuati on of gross hematuria. CT scan of abdomen and pelvis without contrast demonstrates post-surgical norman nges within the bladder as well as a presumptive multiple blood clots, presumptive bilateral renal cy sts and persistence of a 1.8 cm gastric body nodule that has previously been noted. Hemoglobin yeste rday afternoon 8.1, this is down from 9.2, white blood count down to 12.1. IMPRESSION: Continuation of gross hematuria status post open prostatectomy under the care of Dr. Cecil bobo with persistence of gross hematuria. PLAN: Stat hemoglobin and hematocrit as the patient continues to have gross hematuria. The case has been discussed with primary doctor. He is requesting a cystoscopy as he continues to bleed and does not appear that this is coming from the upper tracts. We will proceed with cystoscopy, evacuation o f clots, possible TURP and coagulation of prostatic fossa in the morning time. At this juncture, we will obtain chest x-ray. Follow up electrolytes, PT, PTT and repeat hemoglobin and hematocrit, most likely will benefit from preoperative transfusion, how the procedure is performed, potential complic ations, side effects, potential continued bleeding. Option of waiting until Dr. Alba returns have all been reviewed with the patient. The patient would like to proceed with the above. All question s have been answered. We will make n.p.o. post-midnight. Dictated By: MARYCHUY SHAW MD EGR/NTS Conf#: [id number] DID#: [id number] CC: HARISH SRINIVASAN MD; MARYCHUY SHAW MD;*EndCC*
[2018-06-22] MEDS: CEFTRIAXONE 1 GM/50 ML (PMX) 50 ML IVPB SCH (09:23)
[2018-06-22] MEDS: ALLOPURINOL 300 MG TAB PO SCH (09:24)
[2018-06-22] MEDS: LISINOPRIL 20 MG TAB PO SCH (09:24)
[2018-06-22] MEDS: FINASTERIDE 5 MG TAB PO SCH (09:24)
[2018-06-22] MEDS: AMLODIPINE 10 MG TAB PO SCH (09:24)
--- NOTE | 2018-06-22 10:50 | PN ---
Date/Time of Note Date/Time of Note DATE: 06/22/18 TIME: 10:48 Subjective Doing well. No abdominal pain. No nausea or vomiting. Objective Vitals Vital Signs Date Temp Pulse Resp B/P (MAP) Pulse Ox O2 O2 Flow FiO2 Time Delivery Rate 06/22/18 98.1 82 18 146/63 97 Room Air 08:00 (90) Intake and Output 06/21/18 06/21/18 06/22/18 1515:00 23:00 07:00 IntakeIntake Total 50 ml 400 ml 300 ml OutputOutput Total 4700 ml 4620 ml BalanceBalance 50 ml -4300 ml -4320 ml Clear to auscultation bilaterally Regular rate and rhythm Soft nontender nondistended normoactive bowel sounds Johnson catheter in place with light red urine No edema Nonfocal Results Result Diagram: 06/22/1882406/22/18824 Medications Medications Current Medications Allopurinol (Zyloprim) 300 mg DAILY PO Last administered on 06/22/18 09:24; Admin Dose 300 MG; Start 06/21/18 at 09:00 Amlodipine Besylate (Norvasc) 10 mg DAILY PO Last administered on 06/22/18 09:24; Admin Dose 10 MG; Start 06/21/18 at 09:00 Lisinopril (Zestril) 20 mg DAILY PO Last administered on 06/22/18 09:24; Admin Dose 20 MG; Start 06/21/18 at 09:00 Acetaminophen (Tylenol Tab) 650 mg Q6H PRN PO MILD PAIN(1-3)OR ELEVATED TEMP; Start 06/21/18 at 08:00 Belladonna Alkaloids/Opium (B&O No.15a) 1 supp QID PRN ND PAIN LEVEL 4-6; Start 06/21/18 at 09:00 Ceftriaxone Sodium 50 ml @ 100 mls/hr Q24H IVPB Last administered on 06/22/18 09:23; Admin Dose 100 MLS/HR; Start 06/21/18 at 09:00 Tamsulosin HCl (Flomax) 0.4 mg HS PO Last administered on 06/21/18 20:16; Admin Dose 0.4 MG; Start 06/21/18 at 21:00 Finasteride (Proscar) 5 mg DAILY PO Last administered on 5/7/19at 09:24; Admin Dose 5 MG; Start 06/21/18 at 09:00 Lactulose (Enulose) 20 gm DAILY PO ; Start 06/22/18 at 10:00 VTE Prophylaxis Risk score (from Ns)>0 risk: 6 SCD applied (from [facility]): Yes Lines/Catheters IV Catheter Type: Saline Lock Johnson in Place: Yes Cont'd johnson catheter reason: urinary retention Assessment/Plan Assessment/Plan 77-year-old male with persistent gross hematuria Status post suprapubic prostatectomy 2 weeks prior to admission Hypertension Acute kidney injury Acute blood loss anemia N.p.o. after midnight Proceed with cystoscopy in a.m. Check CBC, PT, PTT Case was discussed with Dr. Rankin Patient is agreeable to the procedure. HARISH SRINIVASAN MD June 22, 2018 10:50
[2018-06-22] MEDS: LACTULOSE 30ML CUP PO SCH (12:07)
[2018-06-22 14:00] VITALS: BP 111/53; PULSE 72; RESP 18
--- NOTE | 2018-06-22 15:57 | RADRPT ---
Vent Rate: 77 bpm RR Interval: 784 msec OH Interval: 176 msec QRS Duration: 94 msec QT Interval: 372 msec QTC Interval: 420 msec P-R-T Bradner: 70 - 44 - 65 degrees Sinus rhythm...normal P axis, V-rate 50- 99 Electronically Signed By: Jaspal Magana
[2018-06-22 20:00] VITALS: BP 113/55; PULSE 73; RESP 19
[2018-06-22] MEDS: TAMSULOSIN (SR) 0.4 MG CAP PO SCH (20:18)
[2018-06-22] MEDS: ALPRAZOLAM 0.5 MG TAB PO PRN (22:09)
[2018-06-22] MEDS ORDERED: NA POLYST SULFON 15 GM/60 ML BTL PO ONE (22:30)
[2018-06-22] MEDS ORDERED: SODIUM POLYSTYRENE 15 GM KIT (POWDER + SORBITOL) PO SCH (22:43)
[2018-06-23] VITALS (18 sets, daily range): BP systolic 73–122; BP diastolic 33–57; PULSE 70–98; RESP 10–20
[2018-06-23] MEDS: ALPRAZOLAM 0.5 MG TAB PO PRN (02:30)
[2018-06-23] MEDS: FINASTERIDE 5 MG TAB PO SCH (09:00)
[2018-06-23] MEDS: ALLOPURINOL 300 MG TAB PO SCH (09:00)
[2018-06-23] MEDS: AMLODIPINE 10 MG TAB PO SCH (09:00)
[2018-06-23] MEDS: LISINOPRIL 20 MG TAB PO SCH (09:00)
[2018-06-23] MEDS: CEFTRIAXONE 1 GM/50 ML (PMX) 50 ML IVPB SCH (09:00)
[2018-06-23] MEDS: LACTULOSE 30ML CUP PO SCH (09:00)
--- NOTE | 2018-06-23 09:12 | HPN ---
Date/Time of Note Date/Time of Note DATE: 06/23/18 TIME: 09:11 Interval H&P Admission Note Pt. seen H&P reviewed: No system changes continues with gross ehmaturia on CBI HG 8.0 Transfusion initiated, for TURP - coagulation of bleeding points, evacuation of clots. MARYCHUY SHAW June 23, 2018 09:12
--- NOTE | 2018-06-23 09:34 | CONS ---
DATE OF ADMISSION: 06/21/2018 DATE OF CONSULTATION: 06/23/2018 HISTORY OF PRESENT ILLNESS: The patient continues with gross hematuria on continuous bladder irrigat ion. The patient's hemoglobin yesterday was 7.9 and this morning it is 8.0. He is resting comfortab ly. Case has been reviewed with Dr. Thapa who is requesting intervention/cystoscopy coagulation of b leeding points. PHYSICAL EXAMINATION: VITAL SIGNS: Stable. ABDOMEN: Soft, nondistended, nontender. No palpable mass effect. No CVA tenderness, no masses. GENITALIA: Normal shaft penis, normal meatus. Normal scrotum. Mild induration of the left testicle with a resolving epididymitis normal right testicle, continuous bladder irrigation with positive hussein ss hematuria. Simon catheter irrigated, multiple clots removed. IMPRESSION: Continuation of gross hematuria status post suprapubic prostatectomy for a very large pr ostate with continuation of bleeding despite prior conservative therapy and transfusion. PLAN: Different options were reviewed with the patient. Pros and cons were discussed. The patient would like to proceed with surgery in an attempt to stop the bleeding. The patient is currently rece iving another transfusion. Case has been discussed with anesthesia. The patient is to proceed with a cystoscopy, evacuation of clots, coagulation of bleeding points, possible TURP, another procedure p erformed, potential complications, side effects, including but not limited to continuation of bleedin g requirement for secondary procedure, open procedure, pain, infection, incontinence, total incontine nce, return of bleeding extravasation of fluid in light of prior open prostatectomy, bladder perforat ion, erectile dysfunction, voiding dysfunction, sepsis, have all been discussed. He understands the above. Consent has been reviewed and signed. He is to proceed with surgery. Dictated By: MARYCHUY SHAW MD EGR/NTS Conf#: [id number] DID#: [id number] CC: HARISH THAPA MD; MARYCHUY SHAW MD;*EndCC*
--- NOTE | 2018-06-23 09:39 | PREAC ---
Date/Time of Note Date/Time of Note DATE: 06/23/18 TIME: 09:37 Anesthesia Eval and Record Evaluation Time Pre-Procedure Interview DATE: 06/23/18 TIME: 09:37 Age 77 Sex male NPO: 8 hrs Preoperative diagnosis gross hematuria Planned procedure turp Past Medical History Past Medical History: Includes Cardio: HTN Renal: BPH, Other (status post proctectomy 2 weeks ago ) Heme: Anemia Surgery & Anesthesia Issues No known issue Meds Anticoagulation: No Beta Waqas within 24 hr: No Reason Beta Waqas not given: Pt. not on B-Waqas Reported Medications Ciprofloxacin Hcl* (Ciprofloxacin Hcl*) 500 Mg Tablet, 500 MG PO BID, #14 TAB 06/21/18 Allopurinol* (Allopurinol*) 300 Mg Tablet, 300 MG PO DAILY for 90 Days, #90 TAKE 1 TABLET (300MG) BY ORAL ROUTE EVERY DAY 06/15/18 Lisinopril* (Lisinopril*) 20 Mg Tablet, 20 MG PO DAILY for 90 Days, #90 TAKE 1 TABLET BY MOUTH EVERY DAY 06/15/18 Amlodipine Besylate* (Amlodipine Besylate*) 10 Mg Tablet, 10 MG PO DAILY for 30 Days TAKE 1 TABLET BY MOUTH EVERY DAY 06/15/18 Current Medications Allopurinol (Zyloprim) 300 mg DAILY PO Last administered on 06/22/18at 09:24; Admin Dose 300 MG; Start 06/21/18 at 09:00 Amlodipine Besylate (Norvasc) 10 mg DAILY PO Last administered on 06/22/18at 09:24; Admin Dose 10 MG; Start 06/21/18 at 09:00 Lisinopril (Zestril) 20 mg DAILY PO Last administered on 06/22/18at 09:24; Admin Dose 20 MG; Start 06/21/18 at 09:00 Acetaminophen (Tylenol Tab) 650 mg Q6H PRN PO MILD PAIN(1-3)OR ELEVATED TEMP; Start 06/21/18 at 08:00 Belladonna Alkaloids/Opium (B&O No.15a) 1 supp QID PRN [place] PAIN LEVEL 4-6; Start 06/21/18 at 09:00 Ceftriaxone Sodium 50 ml @ 100 mls/hr Q24H IVPB Last administered on 06/22/18at 09:23; Admin Dose 100 MLS/HR; Start 06/21/18 at 09:00 Tamsulosin HCl (Flomax) 0.4 mg HS PO Last administered on 06/22/18at 20:18; Admin Dose 0.4 MG; Start 06/21/18 at 21:00 Finasteride (Proscar) 5 mg DAILY PO Last administered on 06/22/18at 09:24; Admin Dose 5 MG; Start 06/21/18 at 09:00 Lactulose (Enulose) 20 gm DAILY PO Last administered on 06/22/18at 12:07; Admin Dose 20 GM; Start 06/22/18 at 10:00 Alprazolam (Xanax) 0.5 mg Q4H PRN PO ANXIETY Last administered on 06/23/18at 02:30; Admin Dose 0.5 MG; Start 06/22/18 at 19:00 Meds reviewed: Yes Allergies Coded Allergies: No Known Allergy (Unverified , 06/15/18) Allergies Reviewed: Yes Labs/Studies Labs Reviewed: Reviewed by anesthesiologist Result Diagram: 06/23/18 0542 06/22/18 0825 Laboratory Tests 06/23/18 05:42 test: N/A Pre-procedure Exam Last vitals Vital Signs Date Temp Pulse Resp B/P (MAP) Pulse Ox O2 O2 Flow FiO2 Time Delivery Rate 06/23/18 98.1 70 18 115/54 98 02:00 (74) 06/22/18 Room Air 14:00 Airway: Adequate mouth opening, Adequate thyromental dist Mallampati: Mallampati IV Teeth: Normal Lung: Normal Heart: Normal ASA Physical Status ASA physical status: 3 Emergency: None Pre-operative Attestations Prior to commencing anesthesia and surgery, the patient was re-evaluated, there was verification of: *The patient's identity *The results of appropriate recent lab work and preoperative vital signs *The above evaluation not changing prior to induction *Anesthetic plan, risk benefits, alternative and complications discussed with patient/family; questions answered; patient/family understands, accepts and wishes to proceed. GLORIA YOUNG DO June 23, 2018 09:39
[2018-06-23] MEDS ORDERED: ETOMIDATE 20 MG INJ ONE (09:56)
[2018-06-23] MEDS ORDERED: MIDAZOLAM 1 MG/ML 2 ML INJ ONE (09:56)
[2018-06-23] MEDS ORDERED: ROCURONIUM 50 MG INJ ONE (09:56)
[2018-06-23] MEDS ORDERED: LIDOCAINE 1% (MDV) 20 ML INJ ONE (09:56)
[2018-06-23] MEDS ORDERED: HYDROmorphONE 1 MG/5 ML IV SYRINGE IV PRN ×3 (10:00)
[2018-06-23] MEDS ORDERED: ONDANSETRON 4 MG INJ IV PRN (10:00)
[2018-06-23] MEDS ORDERED: DIPHENHYDRAMINE 50 MG INJ IV PRN (10:00)
[2018-06-23] MEDS ORDERED: MEPERIDINE 25 MG INJ IV PRN (10:00)
[2018-06-23] MEDS ORDERED: PHENYLephrine (100 MCG/ML) 10ML SYG ONE (10:09)
[2018-06-23] MEDS ORDERED: CIPROFLOXACIN 400MG/D5W 200 ML ONE (10:12)
[2018-06-23] MEDS ORDERED: EPHEDrine 25 MG/5 ML SYG ONE (10:35)
[2018-06-23] MEDS ORDERED: ONDANSETRON 4 MG INJ ONE (10:35)
--- NOTE | 2018-06-23 11:01 | PN ---
Date/Time of Note Date/Time of Note DATE: 06/23/18 TIME: 10:59 Subjective Doing well. No new complaints. Awaiting cystoscopy. Objective Vitals Vital Signs Date Temp Pulse Resp B/P (MAP) Pulse Ox O2 O2 Flow FiO2 Time Delivery Rate 06/23/18 97.5 72 18 122/57 100 Room Air 10:06 (78) Intake and Output 06/22/18 06/22/18 06/23/18 1515:00 23:00 07:00 IntakeIntake Total 530 ml 520 ml 0 ml BalanceBalance 530 ml 520 ml 0 ml Clear to auscultation bilaterally Regular rate and rhythm Soft nontender nondistended normoactive bowel sounds Johnson with light red color urine No edema Nonfocal Results Result Diagram: 06/23/18 0542 06/22/18 0825 Medications Medications Current Medications Allopurinol (Zyloprim) 300 mg DAILY PO Last administered on 06/22/18 09:24; Admin Dose 300 MG; Start 06/21/18 at 09:00 Amlodipine Besylate (Norvasc) 10 mg DAILY PO Last administered on 06/22/18 09:24; Admin Dose 10 MG; Start 06/21/18 at 09:00 Lisinopril (Zestril) 20 mg DAILY PO Last administered on 06/22/18 09:24; Admin Dose 20 MG; Start 06/21/18 at 09:00 Acetaminophen (Tylenol Tab) 650 mg Q6H PRN PO MILD PAIN(1-3)OR ELEVATED TEMP; Start 06/21/18 at 08:00 Belladonna Alkaloids/Opium (B&O No.15a) 1 supp QID PRN [place] PAIN LEVEL 4-6; Start 06/21/18 at 09:00 Ceftriaxone Sodium 50 ml @ 100 mls/hr Q24H IVPB Last administered on 06/22/18 09:23; Admin Dose 100 MLS/HR; Start 06/21/18 at 09:00 Tamsulosin HCl (Flomax) 0.4 mg HS PO Last administered on 06/22/18 20:18; Admin Dose 0.4 MG; Start 06/21/18 at 21:00 Finasteride (Proscar) 5 mg DAILY PO Last administered on 06/22/18 09:24; Admin Dose 5 MG; Start 06/21/18 at 09:00 Lactulose (Enulose) 20 gm DAILY PO Last administered on 06/22/18at 12:07; Admin Dose 20 GM; Start 06/22/18 at 10:00 Alprazolam (Xanax) 0.5 mg Q4H PRN PO ANXIETY Last administered on 06/23/18at 02:30; Admin Dose 0.5 MG; Start 06/22/18 at 19:00 Hydromorphone HCl (Dilaudid) 0.2 mg PACU PRN IV MILD PAIN 1-3; Start 06/23/18 at 10:00; Stop 06/23/18 at 16:00 Hydromorphone HCl (Dilaudid) 0.4 mg PACU PRN IV MOD PAIN 4-6; Start 06/23/18 at 10:00; Stop 06/23/18 at 16:00 Hydromorphone HCl (Dilaudid) 0.6 mg PACU PRN IV SEVERE PAIN 7-10; Start 06/23/18 at 10:00; Stop 06/23/18 at 16:00 Ondansetron HCl (Zofran Inj) 4 mg PACU ORDER PRN IV NAUSEA/VOMITING; Start 06/23/18 at 10:00; Stop 06/23/18 at 16:00 Meperidine HCl (Demerol) 25 mg PACU ORDER PRN IV .RIGORS; Start 06/23/18 at 10:00; Stop 06/23/18 at 16:00 Diphenhydramine HCl (Benadryl) 25 mg PACU ORDER PRN IV .PRURITUS; Start 06/23/18 at 10:00; Stop 06/23/18 at 16:00 VTE Prophylaxis Risk score (from Nsg)>0 risk: 4 SCD applied (from Nsg): Yes Lines/Catheters IV Catheter Type: Saline Lock Johnson in Place: Yes Cont'd johnson catheter reason: urinary retention Assessment/Plan Assessment/Plan Persistent gross hematuria Status post suprapubic prostatectomy 2 weeks prior to admission Acute blood loss anemia Acute kidney injury Hypertension Proceed with cystoscopy Monitor labs The plan was discussed with the patient HARISH SRINIVASAN MD June 23, 2018 11:01
--- NOTE | 2018-06-23 11:25 | OPR ---
Date/Time of Note Date/Time of Note DATE: 06/23/18 TIME: 11:23 Operative Report Procedure Date: June 23, 2018 Preoperative Diagnosis Gross hematuria Postoperative Diagnosis Hemorrhagic prostate Operation/Procedure Performed CYtso, evacuation of clots, TURP, coagulation of bleeding points Surgeon Massiel Market Research Assistant None Anesthesia Type: general Estimated Blood Loss: 10 - 50 ml's Transfusion none Specimen prostate and clots Grafts/Implants none Tubes/Drains [address] Complications none Pt Condition Post Procedure: stable Disposition: PACU Indications gross hematuria Procedure Description dict [id number] MARYCHUY SHAW June 23, 2018 11:25
--- NOTE | 2018-06-23 11:26 | PAC ---
Date/Time of Note Date/Time of Note DATE: 06/23/18 TIME: 11:25 Post-Anesthesia Notes Post-Anesthesia Note Last documented vital signs Vital Signs Date Temp Pulse Resp B/P (MAP) Pulse Ox O2 O2 Flow FiO2 Time Delivery Rate 06/23/18 98.2 72 15 106/70 98 1126 06/22/18 Room Air 14:00 Activity: WNL Respiratory function: WNL Cardiovascular function: WNL Mental status: Baseline Pain reasonably controlled: Yes Hydration appropriate: Yes Nausea/Vomiting absent: Yes GLORIA YOUNG DO June 23, 2018 11:26
[2018-06-23] MEDS ORDERED: HYDROCODONE/APAP (5/325) TAB PO PRN (11:30)
--- NOTE | 2018-06-23 13:25 | OPR ---
DATE OF OPERATION: BRIEF HISTORY: Hilario Mancia is a 77-year-old male, status post open prostatectomy with persistence of gross hematuria despite conservative course. The patient has required transfusion and continuous bladder irrigation with continuation of gross hematuria; thus, he was brought to the operating room today. The patient has been counseled on the procedure and the potential complications and side effe cts. PREOPERATIVE DIAGNOSES: 1. Gross hematuria. 2. Hemorrhagic prostatitis. 3. Clot retention. POSTOPERATIVE DIAGNOSES: 1. Gross hematuria. 2. Hemorrhagic prostatitis. 3. Clot retention. OPERATION PERFORMED: Cystoscopy, evacuation of clots, transurethral resection of prostate, coagulati on of bleeding points. SURGEON: Marychuy Shaw MD ANESTHESIA: General. COMPLICATIONS: None. ESTIMATED BLOOD LOSS: Less than 50 mL. SPECIMEN: Prostatic chips and clot formation. DRAINS: A 24-E[place] 3-way Simon catheter. COMPLICATIONS: None. DESCRIPTION OF PROCEDURE: The patient was brought into the operating room and placed on the operatin g table in the supine lithotomy position. He was prepped and draped in the usual fashion after anest hesia was induced. A timeout was undertaken. Appropriate pressure points were padded. He received preoperative antibiotic therapy and sequential compression devices were applied. Continuous bladder irrigation was noted for gross hematuria. His left testicle has resolving epididymal orchitis. Ther e is no erythema on the scrotum. There is minimal induration of the left testicle. The right testic le is within normal limits. After removal of the Simon catheter, rigid cystoscopy was undertaken wit h a 12-degree and 30-degree angle lens. No abnormalities of the anterior urethra could be appreciate d except for several clots within the urethra. Poorly visualized verumontanum was identified and pre served throughout the entire case. There appears to be healing tissue proximal and distal to this re gion. A very irregular prostatic fossa was noted with active bleeding within the prostatic fossa and some necrotic tissue as well as multiple formed clots. The bladder was inspected in a systematic fa shion. The bladder is essentially filled with multiple large bladder blood clots. With the continuo us flow resectoscope within the urethra, the OrSense evacuator was utilized multiple times to remove th e bladder clots. A multitude of bladder clots were evacuated and repeat cystoscopy was undertaken wi th continuous irrigation running. The bladder was very difficult to evaluate at this juncture due to marked erythema, multiple clots and postoperative changes. I was not able to visualize the ureteral orifices at any time. It does not appear that there is any active bleeding within the bladder yet t here is active bleeding within the prostatic fossa. Attention was first drawn to the level of the bl adder neck and extending into the proximal 1/3 of the prostatic fossa. At the 11 o'clock position, t here is active bleeding with a large blood clot attached onto this area. An attempt to coagulate the area was undertaken with the bipolar resectoscope yet continued bleeding was appreciated and thus, a transurethral resection of this area was undertaken from the 10 o'clock to the 12 o'clock position, thus allowing for removal of the formed clot and necrotic tissue. A suture was noted to be embedded into the prostate in this area. Resection was taken down to healthy tissue which then allowed for pi npoint hemostasis. At the 2 o'clock position in the proximal fossa, necrotic tissue with active blee ding was additionally appreciated and this was also resected within the proximal 1/3 of the prostatic fossa down to prostatic tissue. Pinpoint hemostasis was obtained. The trigone was noted to be unde rmined and at the 7 o'clock position at the level of the bladder neck, active bleeding was additional ly appreciated utilizing the button for the bipolar resectoscope. Pinpoint hemostasis was obtained. At this juncture, no further bleeding could be appreciated. An Amplatz wire was placed into the ann dder and subsequently, a 24-[place] 3-way Simon catheter was easily inserted into the bladder with anthony dance of the wire. The balloon was inflated and continuous bladder irrigation was then initiated wit hout any tension on the catheter. The efflux was noted to be crystal clear. He tolerated the proced ure well and transferred to recovery room in stable condition. Further intervention evaluation pendi ng clinical course and results of above. Dictated By: MARYCHUY SHAW MD EGR/NTS Conf#: [id number] DID#: [id number] CC: HARISH SRINIVASAN MD;*EndCC*
[2018-06-23] MEDS: DEXTROSE 5%-0.45% NACL 1,000 ML IV SCH (13:36)
[2018-06-23] MEDS: DOCUSATE SODIUM 100 MG CAP PO SCH (21:32)
[2018-06-23] MEDS: TAMSULOSIN (SR) 0.4 MG CAP PO SCH (21:32)
[2018-06-24] MEDS: ALPRAZOLAM 0.5 MG TAB PO PRN ×2 (00:30→20:38)
[2018-06-24 02:10] VITALS: BP 130/61; PULSE 75; RESP 18
[2018-06-24 08:00] VITALS: BP 140/64; PULSE 82; RESP 17
[2018-06-24] MEDS: CEFTRIAXONE 1 GM/50 ML (PMX) 50 ML IVPB SCH ×2 (08:36→09:31)
[2018-06-24] MEDS: ALLOPURINOL 300 MG TAB PO SCH (08:37)
[2018-06-24] MEDS: FINASTERIDE 5 MG TAB PO SCH (08:37)
[2018-06-24] MEDS: LACTULOSE 30ML CUP PO SCH (08:37)
[2018-06-24] MEDS: AMLODIPINE 10 MG TAB PO SCH (08:37)
[2018-06-24] MEDS: MAGNESIUM HYDROXIDE 30ML CUP PO PRN (08:37)
[2018-06-24] MEDS: LISINOPRIL 20 MG TAB PO SCH (08:38)
[2018-06-24] MEDS: DOCUSATE SODIUM 100 MG CAP PO SCH ×2 (08:38→20:38)
[2018-06-24] MEDS: DEXTROSE 5%-0.45% NACL 1,000 ML IV SCH (09:38)
--- NOTE | 2018-06-24 11:21 | PN ---
Date/Time of Note Date/Time of Note DATE: 06/24/18 TIME: 11:19 Subjective Doing well. No abdominal pain. Objective Vitals Vital Signs Date Temp Pulse Resp B/P (MAP) Pulse Ox O2 O2 Flow FiO2 Time Delivery Rate 06/24/18 97.9 75 18 130/61 99 02:10 (84) 06/23/18 Nasal 20:30 Cannula 06/23/18 2.0 11:45 Intake and Output 06/23/18 06/23/18 06/24/18 1515:00 23:00 07:00 IntakeIntake Total 2000 ml 535 ml 920 ml OutputOutput Total 2450 ml 1500 ml BalanceBalance -450 ml -965 ml 920 ml Clear to auscultation bilaterally Regular rate and rhythm Soft nontender nondistended normoactive bowel sounds Johnson catheter in place with light red urine No edema Nonfocal Results Result Diagram: 06/24/1860406/24/18604 Medications Medications Current Medications Allopurinol (Zyloprim) 300 mg DAILY PO Last administered on 06/24/18at 08:37; Admin Dose 300 MG; Start 06/21/18 at 09:00 Amlodipine Besylate (Norvasc) 10 mg DAILY PO Last administered on 06/24/18 08:37; Admin Dose 10 MG; Start 06/21/18 at 09:00 Lisinopril (Zestril) 20 mg DAILY PO Last administered on 06/24/18at 08:38; Admin Dose 20 MG; Start 06/21/18 at 09:00 Acetaminophen (Tylenol Tab) 650 mg Q6H PRN PO MILD PAIN(1-3)OR ELEVATED TEMP; Start 06/21/18 at 08:00 Belladonna Alkaloids/Opium (B&O No.15a) 1 supp QID PRN [place] PAIN LEVEL 4-6; Start 06/21/18 at 09:00 Ceftriaxone Sodium 50 ml @ 100 mls/hr Q24H IVPB Last administered on 06/24/18 09:31; Admin Dose 100 MLS/HR; Start 06/21/18 at 09:00 Tamsulosin HCl (Flomax) 0.4 mg HS PO Last administered on 06/23/18 21:32; Admin Dose 0.4 MG; Start 06/21/18 at 21:00 Finasteride (Proscar) 5 mg DAILY PO Last administered on 06/24/18 08:37; Admin Dose 5 MG; Start 06/21/18 at 09:00 Lactulose (Enulose) 20 gm DAILY PO Last administered on 06/24/18 08:37; Admin Dose 20 GM; Start 06/22/18 at 10:00 Alprazolam (Xanax) 0.5 mg Q4H PRN PO ANXIETY Last administered on 06/24/18 00:30; Admin Dose 0.5 MG; Start 06/22/18 at 19:00 Dextrose/Sodium Chloride 1,000 ml @ 50 mls/hr Q20H IV Last administered on 06/24/18 09:38; Admin Dose 50 MLS/HR; Start 06/23/18 at 11:19 Acetaminophen/ Hydrocodone Bitart ([place] (5/325)) 1 tab Q4H PRN PO PAIN; Start 06/23/18 at 11:30 Docusate Sodium (Colace) 100 mg BID PO Last administered on 06/24/18 08:38; Admin Dose 100 MG; Start 06/23/18 at 21:00 Magnesium Hydroxide (Milk Of Mag) 30 ml DAILY PRN PO CONSTIPATION Last administered on 06/24/18 08:37; Admin Dose 30 ML; Start 06/23/18 at 11:30 VTE Prophylaxis Risk score (from Nsg)>0 risk: 5 SCD applied (from Nsg): Yes Lines/Catheters IV Catheter Type: Saline Lock Johnson in Place: Yes Cont'd johnson catheter reason: urinary retention Assessment/Plan Assessment/Plan 77-year-old male with persistent gross hematuria Status post suprapubic prostatectomy 2 weeks prior to admission Postop day #1 cystoscopy, evacuation of blood clot, and control of hemorrhagic prostate Acute kidney injury, improving Acute blood loss anemia, stable Continue CBI Monitor labs Urology follow-up is appreciated HARISH SRINIVASAN MD June 24, 2018 11:21
--- NOTE | 2018-06-24 11:36 | CONS ---
DATE OF ADMISSION: 06/21/2018 DATE OF CONSULTATION: Urology coverage for Dr. Alba. Patient is status post postop day #1. Cystoscopy, evacuation of b lood clots and pinpoint hemostasis within the prostatic fossa. HISTORY OF PRESENT ILLNESS: The patient's condition is improving. He had an eventful night. Earlie r this morning, the nursing staff attempted to discontinue the continuous bladder irrigation and he w as noted to have return of gross hematuria and thus CBI has been maintained. While he is on slow CBI the efflux is noted to be clear. He is tolerating p.o. well without any shortness of breath or ches t pain. He only received 1 unit of PRBC and not 2 units. VITAL SIGNS: Blood pressure 130/61, temperature 97.9, heart rate 75, respiratory rate 18. ABDOMEN: Soft, nondistended, nontender. No palpable masses. No CVA tenderness, no masses. GENITALIA: Normal shaft of penis, normal scrotum. Minimal induration left testicle. Normal right t esticle, slow CBI with clear efflux. The efflux is noted to be without any noted color. There are no noted clots. EXTREMITIES: There are no noted clots. LABORATORY DATA: White blood count 5.9, hemoglobin 8.2. Creatinine 1.57. PT 14.1, PTT 42.1. IMPRESSION: Status post open prostatectomy and subsequent coagulation of the prostatic fossa with li mited TURP with improving gross hematuria which is additionally associated with coagulopathy of an el evated PTT. PLAN: Will continue CBI at this juncture. Would suggest correction of underlying coagulopathy as hi s will assist in resolution of bleeding. Further intervention evaluation planning pending clinical c ourse and results of above. Dictated By: MARYCHUY SHAW MD EGR/NTS Conf#: [id number] DID#: [id number] CC: ASHLEY ALBA MD; MARYCHUY SHAW MD;*EndCC*
[2018-06-24 14:54] VITALS: BP 131/60; PULSE 89; RESP 17
[2018-06-24] MEDS: TAMSULOSIN (SR) 0.4 MG CAP PO SCH (20:38)
[2018-06-24 20:43] VITALS: BP 139/60; PULSE 92; RESP 18
[2018-06-25] VITALS (32 sets, daily range): BP systolic 75–145; BP diastolic 39–95; PULSE 61–141; RESP 10–24
[2018-06-25] MEDS: CEFTRIAXONE 1 GM/50 ML (PMX) 50 ML IVPB SCH (08:12)
[2018-06-25] MEDS: DEXTROSE 5%-0.45% NACL 1,000 ML IV SCH ×3 (08:12→22:56)
--- NOTE | 2018-06-25 08:46 | PN ---
Date/Time of Note Date/Time of Note DATE: 06/25/18 TIME: 08:43 Subjective Patient had recurrent gross hematuria. Denies any abdominal pain or back pain Objective Vitals Vital Signs Date Temp Pulse Resp B/P (MAP) Pulse Ox O2 O2 Flow FiO2 Time Delivery Rate 06/25/18 98.1 82 20 145/65 100 02:22 (91) 06/24/18 Room Air 14:54 06/23/18 2.0 11:45 Intake and Output 06/24/18 06/24/18 06/25/18 1414:59 22:59 06:59 IntakeIntake Total 875 ml 42180 ml 18706 ml OutputOutput Total 1100 ml 61488 ml 3200 ml BalanceBalance -225 ml -1500 ml 9820 ml Clear to auscultation bilaterally Regular rate and rhythm Soft nontender nondistended normoactive bowel sounds Johnson catheter in place with gross hematuria No edema Nonfocal Results Result Diagram: 06/25/18 0709 06/25/18 0709 Medications Medications Current Medications Allopurinol (Zyloprim) 300 mg DAILY PO Last administered on 06/24/18at 08:37; Admin Dose 300 MG; Start 06/21/18 at 09:00 Amlodipine Besylate (Norvasc) 10 mg DAILY PO Last administered on 06/24/18 08:37; Admin Dose 10 MG; Start 06/21/18 at 09:00 Lisinopril (Zestril) 20 mg DAILY PO Last administered on 06/24/18 08:38; Admin Dose 20 MG; Start 06/21/18 at 09:00 Acetaminophen (Tylenol Tab) 650 mg Q6H PRN PO MILD PAIN(1-3)OR ELEVATED TEMP; Start 06/21/18 at 08:00 Belladonna Alkaloids/Opium (B&O No.15a) 1 supp QID PRN [place] PAIN LEVEL 4-6; Start 06/21/18 at 09:00 Ceftriaxone Sodium 50 ml @ 100 mls/hr Q24H IVPB Last administered on 06/25/18at 08:12; Admin Dose 100 MLS/HR; Start 06/21/18 at 09:00 Tamsulosin HCl (Flomax) 0.4 mg HS PO Last administered on 06/24/18 20:38; Admin Dose 0.4 MG; Start 06/21/18 at 21:00 Finasteride (Proscar) 5 mg DAILY PO Last administered on 06/24/18 08:37; Admin Dose 5 MG; Start 06/21/18 at 09:00 Lactulose (Enulose) 20 gm DAILY PO Last administered on 06/24/18 08:37; Admin Dose 20 GM; Start 06/22/18 at 10:00 Alprazolam (Xanax) 0.5 mg Q4H PRN PO ANXIETY Last administered on 06/24/18 20:38; Admin Dose 0.5 MG; Start 06/22/18 at 19:00 Dextrose/Sodium Chloride 1,000 ml @ 50 mls/hr Q20H IV Last administered on 06/25/18 08:12; Admin Dose 50 MLS/HR; Start 06/23/18 at 11:19 Acetaminophen/ Hydrocodone Bitart ([place] (5/325)) 1 tab Q4H PRN PO PAIN; Start 06/23/18 at 11:30 Docusate Sodium (Colace) 100 mg BID PO Last administered on 06/24/18 20:38; Admin Dose 100 MG; Start 06/23/18 at 21:00 Magnesium Hydroxide (Milk Of Mag) 30 ml DAILY PRN PO CONSTIPATION Last administered on 06/24/18 08:37; Admin Dose 30 ML; Start 06/23/18 at 11:30 VTE Prophylaxis Risk score (from Nsg)>0 risk: 5 SCD applied (from Nsg): Yes Lines/Catheters IV Catheter Type: Saline Lock Johnson in Place: Yes Cont'd johnson catheter reason: urinary retention Assessment/Plan Assessment/Plan 77-year-old male with persistent gross hematuria Status post suprapubic prostatectomy 2 weeks prior to admission Postop day 2 cystoscopy, evacuation of blood clot, and control of bleeding Coagulopathy with elevated PTT Resume continuous bladder irrigation Recheck CBC and coags Hematology consultation Urology follow-up HARISH SRINIVASAN MD June 25, 2018 08:46
[2018-06-25] MEDS: DOCUSATE SODIUM 100 MG CAP PO SCH ×2 (09:00→22:09)
[2018-06-25] MEDS: LACTULOSE 30ML CUP PO SCH (09:00)
[2018-06-25] MEDS: ALLOPURINOL 300 MG TAB PO SCH (09:00)
[2018-06-25] MEDS: FINASTERIDE 5 MG TAB PO SCH (09:00)
[2018-06-25] MEDS: LISINOPRIL 20 MG TAB PO SCH (09:00)
[2018-06-25] MEDS: AMLODIPINE 10 MG TAB PO SCH (09:00)
[2018-06-25] MEDS ORDERED: morphine 2 MG INJ IV STA ×2 (09:57→11:09)
[2018-06-25] MEDS ORDERED: SOD CHLORIDE 0.9% IVPB ONE (11:30)
[2018-06-25] MEDS ORDERED: AMINOCAPROIC ACID IVPB ONE (11:30)
[2018-06-25] MEDS ORDERED: BELLADONNA ALK/OPIUM SUPP PR PRN (11:30)
[2018-06-25] MEDS ORDERED: SOD CHLORIDE 0.9% IVPB SCH (11:30)
[2018-06-25] MEDS ORDERED: AMINOCAPROIC ACID IVPB SCH (11:30)
--- NOTE | 2018-06-25 13:53 | CONS ---
DATE OF ADMISSION: 06/21/2018 DATE OF CONSULTATION: 06/25/2018 HISTORY OF PRESENT ILLNESS: The patient was doing well until earlier this morning. The patient was noted to have gross hematuria and subsequent clot retention. He had a decrease in his blood pressure at 7:00 a.m., his hemoglobin was 8.1 with a repeat hemoglobin at 9:00 a.m. of 8.1. Yesterday his he moglobin was 8.2. Hematology consultation has been requested and is currently pending. Patient's PT fluctuates from 14.1 to 15.2, and a PTT from 38.5 to 42.1 as his CBI was not working well. The nurs ing staff placed the inflow onto a pressurized bag so as to allow for better drainage. The patient h as been transferred to the intensive care unit and is currently receiving 1 unit of packed red blood cells. Amicar IV has been ordered. PHYSICAL EXAMINATION: GENERAL: Patient in writhing pain. VITAL SIGNS: Blood pressure 114/56, heart rate 72, temperature 97.8. PHYSICAL EXAMINATION: In thrashing pain. ABDOMEN: Distended, the bladder is markedly hard and distended above the umbilicus. The midline wou nd is clean, dry and intact. GENITALIA: Normal shaft of penis. Minimal induration of the left testicle, normal right testicle. By location of the Simon catheter looks like it has been dislodged, as it appears to be partially out with concern that the Simon balloon is within the prostatic fossa immediately the pressure bag was r emoved and attempt to irrigate the catheter was unsuccessful with inability to instill or remove any fluid. The Simon balloon was deflated and still was not able to irrigate the catheter and thus the c atheter was removed under sterile technique. A new 24-Japanese 3-way Simon catheter was easily inserte d into the bladder with approximately 2 liters of fluid being drained. The patient noted marked decr ease in his pain with decompression of the bladder and resolution of his abdominal findings. The cat heter was irrigated. Several small clots were removed. Continuous bladder irrigation was reinitiate d with efflux now being clear. It appears that the Simon catheter works much better without any resu ltant clot retention and gross hematuria when it resides within the bladder and not on any traction o r falling within to the prostatic fossa. I placed 80 mL of sterile fluid into the balloon. Currentl y, it is not on any traction and was taped to the leg in place without any traction. IMPRESSION: Continue bleeding from the prostate status post open prostatectomy. PLAN: I have been in touch with Dr. Alba's office staff. They are attempting to obtain the previ ous operative report and pathology and will send it to me as soon as they are available. We will con tinue CBI and closed monitoring of electrolytes and hemoglobin. Patient has been ordered to initiate on Amicar as per PCP and hematology. Further intervention evaluation pending clinical course and re sults of above. Dictated By: MARYCHUY SHAW MD EGR/NTS Conf#: [id number] DID#: [id number] CC: HARISH SRINIVASAN MD;*EndCC*
--- NOTE | 2018-06-25 14:02 | RADRPT ---
Vent Rate: 78 bpm RR Interval: 768 msec [place] Interval: 181 msec QRS Duration: 93 msec QT Interval: 368 msec QTC Interval: 420 msec P-R-T [place]: 70 - 46 - 69 degrees Sinus rhythm...normal P axis, V-rate 50- 99 Ventricular premature complex...V complex w/ short R-R interval Electronically Signed By: Jaspal Magana
[2018-06-25] MEDS ORDERED: AMINOCAPROIC ACID IV* SCH (15:30)
[2018-06-25] MEDS ORDERED: SOD CHLORIDE 0.9% IV* SCH (15:30)
[2018-06-25] MEDS ORDERED: morphine 2 MG INJ IV PRN (16:30)
[2018-06-25] MEDS: CIPROFLOXACIN 500 MG TAB PO SCH (17:36)
[2018-06-25] MEDS: TAMSULOSIN (SR) 0.4 MG CAP PO SCH (22:09)
[2018-06-26] VITALS (33 sets, daily range): BP systolic 85–147; BP diastolic 43–71; PULSE 60–78; RESP 8–20
[2018-06-26] MEDS: CIPROFLOXACIN 500 MG TAB PO SCH ×2 (06:05→17:59)
--- NOTE | 2018-06-26 08:24 | CONS ---
DATE OF ADMISSION: 06/21/2018 DATE OF CONSULTATION: UROLOGY CONSULTATION: And follow up coverage for Dr. Alba. HISTORY OF PRESENT ILLNESS: Since the patient was seen yesterday, and a new Simon catheter was reins erted he has not had any further difficulties with his continuous bladder irrigation. There has been no further gross hematuria. Slow continuous bladder irrigation as per nursing staff, has been cryst al clear. He is not having any further pain. There are no bladder spasms. He is not requiring any further morphine or B and O suppositories. He is tolerating solid food well, but has a decrease in a ppetite. There is no nausea or vomiting. PHYSICAL EXAMINATION: GENERAL: Comfortable male lying in the bed. VITAL SIGNS: Blood pressure 118/50, heart rate 74, respiration rate 16, afebrile. ABDOMEN: Soft, nondistended, nontender. Bladder nonpalpable. No rebound, no guarding. Midline wou nd clean, dry and intact. GENITALIA: Normal shaft of penis, normal scrotum and testicles. Minimal induration of the left test icle. Slow continuous bladder irrigation with crystal clear efflux, no noted clots. No hematuria. Hemoglobin 7.8, white blood count 8.7. PT 14.6, PTT 38.3. D-dimer 720, fibrinogen 339, creatinine 1.8. IMPRESSION: Resolved gross hematuria and clot retention. PLAN: 1. Maintain Simon catheter within the lumen of the bladder as the patient has a very large prostatic fossa and a secondary false passage undermining his trigone. Gross hematuria has resolved after a l oading dose of 5 grams of Amicar and then he received 1 gram of Amicar over a several hour period of time. 2. Continue slow continuous bladder irrigation with Simon catheter in bladder, no additional urologi c intervention at this juncture. Further intervention evaluation pending clinical course and results of above. Dictated By: MARYCHUY SHAW MD EGR/NTS Conf#: [id number] DID#: [id number] CC: HARISH SRINIVASAN MD;*EndCC*
[2018-06-26] MEDS: LACTULOSE 30ML CUP PO SCH (08:51)
[2018-06-26] MEDS: LISINOPRIL 20 MG TAB PO SCH (08:52)
[2018-06-26] MEDS: AMLODIPINE 10 MG TAB PO SCH (08:52)
[2018-06-26] MEDS: ALLOPURINOL 300 MG TAB PO SCH (08:52)
[2018-06-26] MEDS: FINASTERIDE 5 MG TAB PO SCH (08:52)
[2018-06-26] MEDS: DOCUSATE SODIUM 100 MG CAP PO SCH ×2 (08:52→20:42)
--- NOTE | 2018-06-26 09:35 | CONS ---
Assessment/Plan Assessment/Plan Hospital Course (Demo Recall) Hemorrhagic complications after prostate surgery are usually associated with increased Fibrinolysis. The prostate gland and urine are known to have a high level of Plasminogen Activator, which is known to imcrease the production of Plasmin. The formed clots are dissolved by Plasmin and therefore increased Fibrinolysis is seen after prostatic surgical interventions, resulting in bleeding complications. Epsilon aminocaproic acid is known to inhibit the Plasminogen activator, reducing the production and Plasmin and the prompt dissolution of the clots.D- dimers are characteristically increased in Fibrinolysis, since they are the fragments of Fibrin degradation or Fibrin degradation products. Recommendations Epsilon aminocaproic acid 4 gm IV loading dose I gm IV infusion x hour Monitor Daily PT, PTT, platelet counts, Fibrinogen levels and D- dimers CBC q 12 hours until stable and transfuse for hemoglobin levels below 7 gm/dl Consultation Date/Type/Reason Admit Date/Time June 21, 2018 at 03:01 Date of Consultation: June 25, 2018 Type of Consult Hematology Oncology Reason for Consultation Post prostatectomy hemorrhage Requesting Provider: HARISH SRINIVASAN MD Date/Time of Note DATE: 06/26/18 TIME: 09:08 Hx of Present Illness This is a 77 year old man who underwent a prostatectomy in November 07, 2018. Charito rebolledo has developed intermittent episodes of hematuria since then. Admitted now with severe hematuria, requiring transfusion of II units of PRBC. He continues with hematuria and and bloody oozing from his penis. He denies any bleeding complications after tooth extraction in the past. He denies family history of bleeding complications. Past Medical History Home Meds Reported Medications Ciprofloxacin Hcl* (Ciprofloxacin Hcl*) 500 Mg Tablet, 500 MG PO BID, #14 TAB 06/21/18 Allopurinol* (Allopurinol*) 300 Mg Tablet, 300 MG PO DAILY for 90 Days, #90 TAKE 1 TABLET (300MG) BY ORAL ROUTE EVERY DAY 06/15/18 Lisinopril* (Lisinopril*) 20 Mg Tablet, 20 MG PO DAILY for 90 Days, #90 TAKE 1 TABLET BY MOUTH EVERY DAY 06/15/18 Amlodipine Besylate* (Amlodipine Besylate*) 10 Mg Tablet, 10 MG PO DAILY for 30 Days TAKE 1 TABLET BY MOUTH EVERY DAY 06/15/18 Medications Current Medications Allopurinol (Zyloprim) 300 mg DAILY PO Last administered on 06/26/18at 08:52; Admin Dose 300 MG; Start 06/21/18 at 09:00 Amlodipine Besylate (Norvasc) 10 mg DAILY PO Last administered on 06/26/18 08:52; Admin Dose 10 MG; Start 06/21/18 at 09:00 Lisinopril (Zestril) 20 mg DAILY PO Last administered on 06/26/18 08:52; Admin Dose 20 MG; Start 06/21/18 at 09:00 Acetaminophen (Tylenol Tab) 650 mg Q6H PRN PO MILD PAIN(1-3)OR ELEVATED TEMP; Start 06/21/18 at 08:00 Belladonna Alkaloids/Opium (B&O No.15a) 1 supp QID PRN [place] PAIN LEVEL 4-6 Last administered on 06/25/18 17:32; Admin Dose 1 SUPP; Start 06/21/18 at 09:00 Tamsulosin HCl (Flomax) 0.4 mg HS PO Last administered on 06/25/18 22:09; Admin Dose 0.4 MG; Start 06/21/18 at 21:00 Finasteride (Proscar) 5 mg DAILY PO Last administered on 06/26/18 08:52; Admin Dose 5 MG; Start 06/21/18 at 09:00 Lactulose (Enulose) 20 gm DAILY PO Last administered on 06/26/18 08:51; Admin Dose 20 GM; Start 06/22/18 at 10:00 Alprazolam (Xanax) 0.5 mg Q4H PRN PO ANXIETY Last administered on 06/24/18 20:38; Admin Dose 0.5 MG; Start 06/22/18 at 19:00 Dextrose/Sodium Chloride 1,000 ml @ 100 mls/hr Q10H IV Last administered on 06/25/18 22:56; Admin Dose 100 MLS/HR; Start 06/23/18 at 11:19 Acetaminophen/ Hydrocodone Bitart (Pride (5/325)) 1 tab Q4H PRN PO PAIN; Start 06/23/18 at 11:30 Docusate Sodium (Colace) 100 mg BID PO Last administered on 06/26/18 08:52; Admin Dose 100 MG; Start 06/23/18 at 21:00 Magnesium Hydroxide (Milk Of Mag) 30 ml DAILY PRN PO CONSTIPATION Last administered on 06/24/18at 08:37; Admin Dose 30 ML; Start 06/23/18 at 11:30 Ciprofloxacin (Cipro) 500 mg BID@06,18 PO Last administered on 06/26/18at 06:05; Admin Dose 500 MG; Start 06/25/18 at 18:00 Morphine Sulfate (morphine) 2 mg Q3H PRN IV SEVERE PAIN LEVEL 7-10; Start 06/25/18 at 16:30 Allergies: Coded Allergies: No Known Allergy (Unverified , 06/15/18) Past Surgical History Past Surgical Hx: other Social History Smoking Status: Never smoker Exam/Review of Systems Exam Vitals Vital Signs Date Temp Pulse Resp B/P (MAP) Pulse Ox O2 O2 Flow FiO2 Time Delivery Rate 06/26/18 70 08:00 06/26/18 97.7 12 114/55 98 Room Air 08:00 (74) 06/25/18 1.0 15:00 Intake and Output 06/25/18 06/25/18 06/26/18 1515:00 23:00 07:00 IntakeIntake Total 500 ml 60165 ml 9400 ml OutputOutput Total 61163 ml 92259 ml BalanceBalance 500 ml 65925 ml -1400 ml Constitutional: alert, oriented, well developed Psych: anxiety Head: normocephalic ENMT: nl external ears & nose, nl lips & teeth Neck: supple, non-tender Respiratory: clear to auscultation, normal air movement Cardiovascular: regular rate and rhythm, nl pulses Gastrointestinal: soft, non-tender Genitourinary - Male: nl penis (oozing bloody discharge) Musculoskeletal: nl extremities to inspection Extremities: normal pulses Neurological: nl mental status Skin: nl turgor Lymph: nl lymph nodes Results Result Diagram: 06/26/185 06/26/18444 Results 24hrs Laboratory Tests Test 06/25/18 09:59 06/25/18 17:29 06/25/18 20:05 06/26/18 04:44 Platelet 63 Func Collagen/Epi nephrine Platelet Function Collagen/ADP Hemoglobin 9.3 L Hematocrit 29.6 L D-Dimer 1404.13 H 720.40 #H D-Dimer Comment Prothrombin Time 14.6 Prothrombin Time 1.1 Ratio INR International 1.13 Normalized Ratio Activated 38.3 H Partial Thrombopl ast Time Test 06/26/18 04:45 06/26/18 04:57 White Blood Count 8.7 # Red Blood Count 3.02 L Hemoglobin 7.8 L Hematocrit 25.1 L Mean Corpuscular 83.1 Volume Mean Corpuscular 25.8 L Hemoglobin Mean Corpuscular 31.1 L Hemoglobin Concen t Red Cell 18.0 H Distribution Width Platelet Count 137 L Mean Platelet 11.3 H Volume Immature 1.300 H Granulocytes % Neutrophils % 70.3 Lymphocytes % 18.7 Monocytes % 6.8 Eosinophils % 2.6 Basophils % 0.3 Nucleated Red 0.0 Blood Cells % Immature 0.110 H Granulocytes # Neutrophils # 6.1 Lymphocytes # 1.6 Monocytes # 0.6 Eosinophils # 0.2 Basophils # 0.0 Nucleated Red 0.0 Blood Cells # Fibrinogen 339.0 Sodium Level 138 Potassium Level 4.7 Chloride Level 110 Carbon Dioxide 21 Level Anion Gap 7 Blood Urea 23 H Nitrogen Creatinine 1.83 H Est Glomerular Filtrat Rate mL/min Glucose Level 109 Calcium Level 8.3 L Lab Scanned BLOOD TRANSFUSIO Report N Medications Medication Current Medications Allopurinol (Zyloprim) 300 mg DAILY PO Last administered on 06/26/18 08:52; Admin Dose 300 MG; Start 06/21/18 at 09:00 Amlodipine Besylate (Norvasc) 10 mg DAILY PO Last administered on 06/26/18 08:52; Admin Dose 10 MG; Start 06/21/18 at 09:00 Lisinopril (Zestril) 20 mg DAILY PO Last administered on 06/26/18 08:52; Admin Dose 20 MG; Start 06/21/18 at 09:00 Acetaminophen (Tylenol Tab) 650 mg Q6H PRN PO MILD PAIN(1-3)OR ELEVATED TEMP; Start 06/21/18 at 08:00 Belladonna Alkaloids/Opium (B&O No.15a) 1 supp QID PRN [place] PAIN LEVEL 4-6 Last administered on 06/25/18at 17:32; Admin Dose 1 SUPP; Start 06/21/18 at 09:00 Tamsulosin HCl (Flomax) 0.4 mg HS PO Last administered on 06/25/18at 22:09; Admin Dose 0.4 MG; Start 06/21/18 at 21:00 Finasteride (Proscar) 5 mg DAILY PO Last administered on 06/26/18 08:52; Admin Dose 5 MG; Start 06/21/18 at 09:00 Lactulose (Enulose) 20 gm DAILY PO Last administered on 06/26/18 08:51; Admin Dose 20 GM; Start 06/22/18 at 10:00 Alprazolam (Xanax) 0.5 mg Q4H PRN PO ANXIETY Last administered on 06/24/18 20:38; Admin Dose 0.5 MG; Start 06/22/18 at 19:00 Dextrose/Sodium Chloride 1,000 ml @ 100 mls/hr Q10H IV Last administered on 06/25/18 22:56; Admin Dose 100 MLS/HR; Start 06/23/18 at 11:19 Acetaminophen/ Hydrocodone Bitart (Pride (5/325)) 1 tab Q4H PRN PO PAIN; Start 06/23/18 at 11:30 Docusate Sodium (Colace) 100 mg BID PO Last administered on 06/26/18 08:52; Admin Dose 100 MG; Start 06/23/18 at 21:00 Magnesium Hydroxide (Milk Of Mag) 30 ml DAILY PRN PO CONSTIPATION Last administered on 06/24/18 08:37; Admin Dose 30 ML; Start 06/23/18 at 11:30 Ciprofloxacin (Cipro) 500 mg BID@06,18 PO Last administered on 06/26/18 06:05; Admin Dose 500 MG; Start 06/25/18 at 18:00 Morphine Sulfate (morphine) 2 mg Q3H PRN IV SEVERE PAIN LEVEL 7-10; Start 06/25/18 at 16:30 ERIC SOTELO MD June 26, 2018 09:19
[2018-06-26] MEDS: DEXTROSE 5%-0.45% NACL 1,000 ML IV SCH (10:46)
--- NOTE | 2018-06-26 12:30 | PN ---
Date/Time of Note Date/Time of Note DATE: 06/26/18 TIME: 12:27 Assessment/Plan VTE Prophylaxis Risk score (from [facility])>0 risk: 8 SCD applied (from [facility]): Yes SCD contraindicated: other Pharmacological prophylaxis: NA/contraindicated Pharm contraindication: bleeding Lines/Catheters IV Catheter Type (from [facility]): Peripheral IV Urinary Cath still in place: Yes (3 WAY CBI) Reason Cath still needed: other (indicate) (bladder irrigation) Assessment/Plan Assessment/Plan 1. s/p prostatectomy (b) post-op blood loss, ongoing, on amino caproic acid, cont (c) transfuse 2. ckd, but creat up slightly today, increase volume with transfusion Result Diagram: 06/26/1844406/26/18444 Results 24hrs Laboratory Tests Test 06/25/18 17:29 06/25/18 20:05 06/26/18 04:44 06/26/18 04:45 Hemoglobin 9.3 L 7.8 L Hematocrit 29.6 L 25.1 L D-Dimer 1404.13 H 720.40 #H D-Dimer Comment Prothrombin Time 14.6 Prothrombin Time 1.1 Ratio INR International 1.13 Normalized Ratio Activated 38.3 H Partial Thrombopl ast Time White Blood Count 8.7 # Red Blood Count 3.02 L Mean Corpuscular 83.1 Volume Mean Corpuscular 25.8 L Hemoglobin Mean Corpuscular 31.1 L Hemoglobin Concen t Red Cell 18.0 H Distribution Width Platelet Count 137 L Mean Platelet 11.3 H Volume Immature 1.300 H Granulocytes % Neutrophils % 70.3 Lymphocytes % 18.7 Monocytes % 6.8 Eosinophils % 2.6 Basophils % 0.3 Nucleated Red 0.0 Blood Cells % Immature 0.110 H Granulocytes # Neutrophils # 6.1 Lymphocytes # 1.6 Monocytes # 0.6 Eosinophils # 0.2 Basophils # 0.0 Nucleated Red 0.0 Blood Cells # Fibrinogen 339.0 Sodium Level 138 Potassium Level 4.7 Chloride Level 110 Carbon Dioxide 21 Level Anion Gap 7 Blood Urea 23 H Nitrogen Creatinine 1.83 H Est Glomerular Filtrat Rate mL/min Glucose Level 109 Calcium Level 8.3 L Test 06/26/18 04:57 Lab Scanned BLOOD TRANSFUSIO Report N Subjective 24 Hr Interval Summary Free Text/Dictation no complaints pain controlled, feels thirst, eating ok Exam/Review of Systems Exam Vitals Vital Signs Date Temp Pulse Resp B/P (MAP) Pulse Ox O2 O2 Flow FiO2 Time Delivery Rate 06/26/18 70 08:00 06/26/18 97.7 12 114/55 98 Room Air 08:00 (74) 06/25/18 1.0 15:00 Intake and Output 06/25/18 06/25/18 06/26/18 1515:00 23:00 07:00 IntakeIntake Total 500 ml 07384 ml 9500 ml OutputOutput Total 32264 ml 94164 ml BalanceBalance 500 ml 56881 ml -1300 ml Exam nad, soft nt, ctab, rrr Results Results 24hrs Laboratory Tests Test 06/25/18 17:29 06/25/18 20:05 06/26/18 04:44 06/26/18 04:45 Hemoglobin 9.3 L 7.8 L Hematocrit 29.6 L 25.1 L D-Dimer 1404.13 H 720.40 #H D-Dimer Comment Prothrombin Time 14.6 Prothrombin Time 1.1 Ratio INR International 1.13 Normalized Ratio Activated 38.3 H Partial Thrombopl ast Time White Blood Count 8.7 # Red Blood Count 3.02 L Mean Corpuscular 83.1 Volume Mean Corpuscular 25.8 L Hemoglobin Mean Corpuscular 31.1 L Hemoglobin Concen t Red Cell 18.0 H Distribution Width Platelet Count 137 L Mean Platelet 11.3 H Volume Immature 1.300 H Granulocytes % Neutrophils % 70.3 Lymphocytes % 18.7 Monocytes % 6.8 Eosinophils % 2.6 Basophils % 0.3 Nucleated Red 0.0 Blood Cells % Immature 0.110 H Granulocytes # Neutrophils # 6.1 Lymphocytes # 1.6 Monocytes # 0.6 Eosinophils # 0.2 Basophils # 0.0 Nucleated Red 0.0 Blood Cells # Fibrinogen 339.0 Sodium Level 138 Potassium Level 4.7 Chloride Level 110 Carbon Dioxide 21 Level Anion Gap 7 Blood Urea 23 H Nitrogen Creatinine 1.83 H Est Glomerular Filtrat Rate mL/min Glucose Level 109 Calcium Level 8.3 L Test 06/26/18 04:57 Lab Scanned BLOOD TRANSFUSIO Report N Medications Medication Current Medications Allopurinol (Zyloprim) 300 mg DAILY PO Last administered on 06/26/18at 08:52; Admin Dose 300 MG; Start 06/21/18 at 09:00 Amlodipine Besylate (Norvasc) 10 mg DAILY PO Last administered on 06/26/18 08:52; Admin Dose 10 MG; Start 06/21/18 at 09:00 Lisinopril (Zestril) 20 mg DAILY PO Last administered on 06/26/18 08:52; Admin Dose 20 MG; Start 06/21/18 at 09:00 Acetaminophen (Tylenol Tab) 650 mg Q6H PRN PO MILD PAIN(1-3)OR ELEVATED TEMP; Start 06/21/18 at 08:00 Belladonna Alkaloids/Opium (B&O No.15a) 1 supp QID PRN [place] PAIN LEVEL 4-6 Last administered on 06/25/18 17:32; Admin Dose 1 SUPP; Start 06/21/18 at 09:00 Tamsulosin HCl (Flomax) 0.4 mg HS PO Last administered on 06/25/18 22:09; Admin Dose 0.4 MG; Start 06/21/18 at 21:00 Finasteride (Proscar) 5 mg DAILY PO Last administered on 06/26/18 08:52; Admin Dose 5 MG; Start 06/21/18 at 09:00 Lactulose (Enulose) 20 gm DAILY PO Last administered on 06/26/18 08:51; Admin Dose 20 GM; Start 06/22/18 at 10:00 Alprazolam (Xanax) 0.5 mg Q4H PRN PO ANXIETY Last administered on 06/24/18 20:38; Admin Dose 0.5 MG; Start 06/22/18 at 19:00 Acetaminophen/ Hydrocodone Bitart ([place] (5/325)) 1 tab Q4H PRN PO PAIN; Start 06/23/18 at 11:30 Docusate Sodium (Colace) 100 mg BID PO Last administered on 06/26/18 08:52; Admin Dose 100 MG; Start 06/23/18 at 21:00 Magnesium Hydroxide (Milk Of Mag) 30 ml DAILY PRN PO CONSTIPATION Last administered on 06/24/18 08:37; Admin Dose 30 ML; Start 06/23/18 at 11:30 Ciprofloxacin (Cipro) 500 mg BID@18 PO Last administered on 06/26/18 06:05; Admin Dose 500 MG; Start 06/25/18 at 18:00 Morphine Sulfate (morphine) 2 mg Q3H PRN IV SEVERE PAIN LEVEL 7-10; Start 06/25/18 at 16:30 SAMARIA FRENCH MD June 26, 2018 12:30
[2018-06-26] MEDS: TAMSULOSIN (SR) 0.4 MG CAP PO SCH (20:42)
[2018-06-26] MEDS: ALPRAZOLAM 0.5 MG TAB PO PRN (22:59)
[2018-06-27] VITALS (19 sets, daily range): BP systolic 120–152; BP diastolic 55–84; PULSE 66–93; RESP 11–23
[2018-06-27] MEDS: CIPROFLOXACIN 500 MG TAB PO SCH ×2 (06:15→18:34)
[2018-06-27] MEDS: LACTULOSE 30ML CUP PO SCH (08:43)
[2018-06-27] MEDS: FINASTERIDE 5 MG TAB PO SCH (08:43)
[2018-06-27] MEDS: DOCUSATE SODIUM 100 MG CAP PO SCH ×2 (08:43→22:58)
[2018-06-27] MEDS: AMLODIPINE 10 MG TAB PO SCH (08:43)
[2018-06-27] MEDS: ALLOPURINOL 300 MG TAB PO SCH (08:43)
[2018-06-27] MEDS: LISINOPRIL 20 MG TAB PO SCH (08:44)
--- NOTE | 2018-06-27 11:36 | PN ---
Date/Time of Note Date/Time of Note DATE: 06/27/18 TIME: 11:34 Assessment/Plan VTE Prophylaxis Risk score (from Ns)>0 risk: 10 SCD applied (from Ns): Yes Pharmacological prophylaxis: NA/contraindicated Pharm contraindication: bleeding Lines/Catheters IV Catheter Type (from Nrsg): Peripheral IV Urinary Cath still in place: Yes (3 WAY CBI) Reason Cath still needed: other (indicate) (irrigation) Assessment/Plan Assessment/Plan 1. s/p prostatcectomy 2. post op blood loss, s/p transfusion, improved nifely , cont to monitor hgb 3. creat much improved with bladder irrigation and volume, cont to monitor Result Diagram: 06/27/18 0509 06/27/18 0509 Results 24hrs Laboratory Tests Test 06/27/18 05:09 White Blood Count 5.6 # Red Blood Count 3.63 #L Hemoglobin 9.6 #L Hematocrit 30.4 #L Mean Corpuscular Volume 83.7 Mean Corpuscular Hemoglobin 26.4 L Mean Corpuscular Hemoglobin Concent 31.6 L Red Cell Distribution Width 16.8 H Platelet Count 127 L Mean Platelet Volume 12.4 H Immature Granulocytes % 1.200 H Neutrophils % 62.8 Lymphocytes % 24.2 Monocytes % 6.8 Eosinophils % 4.5 Basophils % 0.5 Nucleated Red Blood Cells % 0.0 Immature Granulocytes # 0.070 H Neutrophils # 3.5 Lymphocytes # 1.4 Monocytes # 0.4 Eosinophils # 0.3 Basophils # 0.0 Nucleated Red Blood Cells # 0.0 Sodium Level 140 Potassium Level 4.1 Chloride Level 112 H Carbon Dioxide Level 22 Anion Gap 6 Blood Urea Nitrogen 19 Creatinine 1.18 Est Glomerular Filtrat Rate mL/min Glucose Level 110 Calcium Level 8.7 Subjective 24 Hr Interval Summary Free Text/Dictation some L flank pain, appears to be more low back/si joint Exam/Review of Systems Exam Vitals Vital Signs Date Temp Pulse Resp B/P (MAP) Pulse Ox O2 O2 Flow FiO2 Time Delivery Rate 06/27/18 81 12 150/69 100 Room Air 09:00 (96) 06/27/18 98.1 08:00 06/25/18 1.0 15:00 Intake and Output 06/26/18 06/26/18 06/27/18 1515:00 23:00 07:00 IntakeIntake Total 61025 ml 47992 ml 6000 ml OutputOutput Total 61581 ml 30513 ml 7000 ml BalanceBalance -3750 ml -1850 ml -1000 ml Exam nad, soft nt, ctab, no reproducible tenderness at L flanbk Results Results 24hrs Laboratory Tests Test 06/27/18 05:09 White Blood Count 5.6 # Red Blood Count 3.63 #L Hemoglobin 9.6 #L Hematocrit 30.4 #L Mean Corpuscular Volume 83.7 Mean Corpuscular Hemoglobin 26.4 L Mean Corpuscular Hemoglobin Concent 31.6 L Red Cell Distribution Width 16.8 H Platelet Count 127 L Mean Platelet Volume 12.4 H Immature Granulocytes % 1.200 H Neutrophils % 62.8 Lymphocytes % 24.2 Monocytes % 6.8 Eosinophils % 4.5 Basophils % 0.5 Nucleated Red Blood Cells % 0.0 Immature Granulocytes # 0.070 H Neutrophils # 3.5 Lymphocytes # 1.4 Monocytes # 0.4 Eosinophils # 0.3 Basophils # 0.0 Nucleated Red Blood Cells # 0.0 Sodium Level 140 Potassium Level 4.1 Chloride Level 112 H Carbon Dioxide Level 22 Anion Gap 6 Blood Urea Nitrogen 19 Creatinine 1.18 Est Glomerular Filtrat Rate mL/min Glucose Level 110 Calcium Level 8.7 Medications Medication Current Medications Allopurinol (Zyloprim) 300 mg DAILY PO Last administered on 06/27/18 08:43; Admin Dose 300 MG; Start 06/21/18 at 09:00 Amlodipine Besylate (Norvasc) 10 mg DAILY PO Last administered on 06/27/18 08 :43; Admin Dose 10 MG; Start 06/21/18 at 09:00 Lisinopril (Zestril) 20 mg DAILY PO Last administered on 06/27/18 08:44; Admin Dose 20 MG; Start 06/21/18 at 09:00 Acetaminophen (Tylenol Tab) 650 mg Q6H PRN PO MILD PAIN(1-3)OR ELEVATED TEMP Last administered on 06/26/18 15:57; Admin Dose 650 MG; Start 06/21/18 at 08:00 Belladonna Alkaloids/Opium (B&O No.15a) 1 supp QID PRN [place] PAIN LEVEL 4-6 Last a dministered on 06/25/18 17:32; Admin Dose 1 SUPP; Start 06/21/18 at 09:00 Tamsulosin HCl (Flomax) 0.4 mg HS PO Last administered on 06/26/18 20:42; Admin Dose 0.4 MG; Start 06/21/18 at 21:00 Finasteride (Proscar) 5 mg DAILY PO Last administered on 06/27/18 08:43; Admin Dose 5 MG; Start 06/21/18 at 09:00 Lactulose (Enulose) 20 gm DAILY PO Last administered on 06/27/18 08:43; Admin Dose 20 GM; Start 06/22/18 at 10:00 Alprazolam (Xanax) 0.5 mg Q4H PRN PO ANXIETY Last administered on 06/26/18 2 2:59; Admin Dose 0.5 MG; Start 06/22/18 at 19:00 Acetaminophen/ Hydrocodone Bitart ([place] (5/325)) 1 tab Q4H PRN PO PAIN; Start 06/23/18 at 11:30 Docusate Sodium (Colace) 100 mg BID PO Last administered on 06/27/18 08:43; Admin Dose 100 MG; Start 06/23/18 at 21:00 Magnesium Hydroxide (Milk Of Mag) 30 ml DAILY PRN PO CONSTIPATION Last administered on 06/24/18 08:37; Admin Dose 30 ML; Start 06/23/18 at 11:30 Ciprofloxacin (Cipro) 500 mg BID@06,18 PO Last administered on 06/27/18 06:15; Admin Dose 500 MG; Start 06/25/18 at 18:00 Morphine Sulfate (morphine) 2 mg Q3H PRN IV SEVERE PAIN LEVEL 7-10; Start 06/25/18 at 16:30 SAMARIA FRENCH MD June 27, 2018 11:36
--- NOTE | 2018-06-27 12:01 | CONS ---
DATE OF ADMISSION: 06/21/2018 DATE OF CONSULTATION: HISTORY OF PRESENT ILLNESS: The patient remains in the intensive care unit. He has had an uneventfu l evening. Overall, the patient is feeling much better. He is not having any gross hematuria or millicent t formation. VITAL SIGNS: Blood pressure 150/69, heart rate 81, respiration 18, temperature 98.1. ABDOMEN: Soft, nondistended, nontender. No palpable masses. Flank, no CVA tenderness, no masses. GENITALIA: Normal shaft of penis, normal scrotum. Minimal induration left testicle. Slow continuou s bladder irrigation with clear efflux. No active bleeding. LABORATORY DATA: White blood count 5.7, hemoglobin 9.6, creatinine 1.18. IMPRESSION: Resolved clot retention status post open prostatectomy and pinpoint coagulation of prost atic fossa and correction of coagulopathy. PLAN: Will continue slow continuous bladder irrigation. Dr. Alba to follow up in the morning almas lemus Hopeful trial of void tomorrow. All questions answered. Dictated By: MARYCHUY MORFIN/BETSY Conf#: [id number] DID#: [id number]
--- NOTE | 2018-06-27 18:53 | CONS ---
Assessment/Plan Assessment/Plan Assessment/Plan (Daily) 77 yo M s/p prostatectomy who presented with severe hematuria. Received amicar with improvement in coagulopathy and hematuria. Labs stable, continue to monitor. Consultation Date/Type/Reason Admit Date/Time June 21, 2018 at 03:01 Initial Consult Date 06/25/18 Type of Consult Hematology-Oncology Requesting Provider: HARISH SRINIVASAN MD Date/Time of Note DATE: 06/27/18 TIME: 18:49 24 HR Interval Summary Free Text/Dictation Doing well Exam/Review of Systems Exam Vitals Vital Signs Date Temp Pulse Resp B/P (MAP) Pulse Ox O2 O2 Flow FiO2 Time Delivery Rate 06/27/18 77 21 129/60 100 Room Air 17:00 (83) 06/27/18 98.4 16:00 06/25/18 1.0 15:00 Intake and Output 06/26/18 06/26/18 06/27/18 1414:59 22:59 06:59 IntakeIntake Total 08840 ml 8350 ml 5100 ml OutputOutput Total 73017 ml 55212 ml 7000 ml BalanceBalance -1950 ml -3250 ml -1900 ml Constitutional: alert, oriented Psych: no complaints, nl mood/affect Head: normocephalic, atraumatic Eyes: nl conjunctiva, EOMI ENMT: mucosa pink and moist Neck: supple Respiratory: clear to auscultation Cardiovascular: regular rate and rhythm Gastrointestinal: soft, non-tender Musculoskeletal: nl extremities to inspection Results Result Diagram: 06/27/18 0509 06/27/18 0509 Results 24hrs Laboratory Tests Test 06/27/18 05:09 White Blood Count 5.6 # Red Blood Count 3.63 #L Hemoglobin 9.6 #L Hematocrit 30.4 #L Mean Corpuscular Volume 83.7 Mean Corpuscular Hemoglobin 26.4 L Mean Corpuscular Hemoglobin Concent 31.6 L Red Cell Distribution Width 16.8 H Platelet Count 127 L Mean Platelet Volume 12.4 H Immature Granulocytes % 1.200 H Neutrophils % 62.8 Lymphocytes % 24.2 Monocytes % 6.8 Eosinophils % 4.5 Basophils % 0.5 Nucleated Red Blood Cells % 0.0 Immature Granulocytes # 0.070 H Neutrophils # 3.5 Lymphocytes # 1.4 Monocytes # 0.4 Eosinophils # 0.3 Basophils # 0.0 Nucleated Red Blood Cells # 0.0 Sodium Level 140 Potassium Level 4.1 Chloride Level 112 H Carbon Dioxide Level 22 Anion Gap 6 Blood Urea Nitrogen 19 Creatinine 1.18 Est Glomerular Filtrat Rate mL/min Glucose Level 110 Calcium Level 8.7 Medications Medication Current Medications Allopurinol (Zyloprim) 300 mg DAILY PO Last administered on 06/27/18 08:43; Admin Dose 300 MG; Start 06/21/18 at 09:00 Amlodipine Besylate (Norvasc) 10 mg DAILY PO Last administered on 06/27/18 08:43; Admin Dose 10 MG; Start 06/21/18 at 09:00 Lisinopril (Zestril) 20 mg DAILY PO Last administered on 06/27/18 08:44; Admin Dose 20 MG; Start 06/21/18 at 09:00 Acetaminophen (Tylenol Tab) 650 mg Q6H PRN PO MILD PAIN(1-3)OR ELEVATED TEMP Last administered on 06/26/18 15:57; Admin Dose 650 MG; Start 06/21/18 at 08:00 Belladonna Alkaloids/Opium (B&O No.15a) 1 supp QID PRN [place] PAIN LEVEL 4-6 Last administered on 06/25/18 17:32; Admin Dose 1 SUPP; Start 06/21/18 at 09:00 Tamsulosin HCl (Flomax) 0.4 mg HS PO Last administered on 06/26/18 20:42; Admin Dose 0.4 MG; Start 06/21/18 at 21:00 Finasteride (Proscar) 5 mg DAILY PO Last administered on 06/27/18 08:43; Admin Dose 5 MG; Start 06/21/18 at 09:00 Lactulose (Enulose) 20 gm DAILY PO Last administered on 06/27/18 08:43; Admin Dose 20 GM; Start 06/22/18 at 10:00 Alprazolam (Xanax) 0.5 mg Q4H PRN PO ANXIETY Last administered on 06/26/18 22:59; Admin Dose 0.5 MG; Start 06/22/18 at 19:00 Acetaminophen/ Hydrocodone Bitart ([place] (5/325)) 1 tab Q4H PRN PO PAIN; Start 06/23/18 at 11:30 Docusate Sodium (Colace) 100 mg BID PO Last administered on 06/27/18at 08:43; Admin Dose 100 MG; Start 06/23/18 at 21:00 Magnesium Hydroxide (Milk Of Mag) 30 ml DAILY PRN PO CONSTIPATION Last administered on 06/24/18at 08:37; Admin Dose 30 ML; Start 06/23/18 at 11:30 Ciprofloxacin (Cipro) 500 mg BID@06,18 PO Last administered on 06/27/18at 18:34; Admin Dose 500 MG; Start 06/25/18 at 18:00 Morphine Sulfate (morphine) 2 mg Q3H PRN IV SEVERE PAIN LEVEL 7-10; Start 06/25/18 at 16:30 OLENA PINO MD June 27, 2018 18:53
[2018-06-27] MEDS: TAMSULOSIN (SR) 0.4 MG CAP PO SCH (22:58)
[2018-06-27] MEDS: ALPRAZOLAM 0.5 MG TAB PO PRN (23:01)
[2018-06-28 01:40] VITALS: BP 122/60; PULSE 63; RESP 18
[2018-06-28] MEDS: MAGNESIUM HYDROXIDE 30ML CUP PO PRN (05:55)
[2018-06-28] MEDS: CIPROFLOXACIN 500 MG TAB PO SCH ×2 (05:55→18:26)
[2018-06-28 08:09] VITALS: BP 146/73; PULSE 79; RESP 19
[2018-06-28] MEDS: LACTULOSE 30ML CUP PO SCH (08:42)
[2018-06-28] MEDS: AMLODIPINE 10 MG TAB PO SCH (08:42)
[2018-06-28] MEDS: ALLOPURINOL 300 MG TAB PO SCH (08:42)
[2018-06-28] MEDS: DOCUSATE SODIUM 100 MG CAP PO SCH ×2 (08:43→21:00)
[2018-06-28] MEDS: LISINOPRIL 20 MG TAB PO SCH (08:43)
[2018-06-28] MEDS: FINASTERIDE 5 MG TAB PO SCH (08:43)
--- NOTE | 2018-06-28 10:28 | PN ---
Date/Time of Note Date/Time of Note DATE: 06/28/18 TIME: 10:25 Subjective Doing well. No complaints. Objective Vitals Vital Signs Date Temp Pulse Resp B/P (MAP) Pulse Ox O2 O2 Flow FiO2 Time Delivery Rate 06/28/18 97.7 79 19 146/73 98 08:09 (97) 06/28/18 Room Air 01:40 06/25/18 1.0 15:00 Intake and Output 06/27/18 06/27/18 06/28/18 1515:00 23:00 07:00 IntakeIntake Total 9450 ml 3300 ml 220 ml OutputOutput Total 59091 ml 7100 ml 5500 ml BalanceBalance -2050 ml -3800 ml -5280 ml Clear to auscultation bilaterally Regular rate and rhythm Soft nontender nondistended normoactive bowel sounds Johnson with pink urine No edema Nonfocal Results Result Diagram: 06/28/18 0420 06/28/18 042 Medications Medications Current Medications Allopurinol (Zyloprim) 300 mg DAILY PO Last administered on 06/28/18 08:42; Admin Dose 300 MG; Start 06/21/18 at 09:00 Amlodipine Besylate (Norvasc) 10 mg DAILY PO Last administered on 06/28/18 08:42; Admin Dose 10 MG; Start 06/21/18 at 09:00 Lisinopril (Zestril) 20 mg DAILY PO Last administered on 06/28/18 08:43; Admin Dose 20 MG; Start 06/21/18 at 09:00 Acetaminophen (Tylenol Tab) 650 mg Q6H PRN PO MILD PAIN(1-3)OR ELEVATED TEMP L ast administered on 06/26/18 15:57; Admin Dose 650 MG; Start 06/21/18 at 08:00 Belladonna Alkaloids/Opium (B&O No.15a) 1 supp QID PRN [place] PAIN LEVEL 4-6 Last administered on 06/25/18 17:32; Admin Dose 1 SUPP; Start 06/21/18 at 09:00 Tamsulosin HCl (Flomax) 0.4 mg HS PO Last administered on 06/27/18 22:58; Admin Dose 0.4 MG; Start 06/21/18 at 21:00 Finasteride (Proscar) 5 mg DAILY PO Last administered on 06/28/18 08:43; Admin Dose 5 MG; Start 06/21/18 at 09:00 Lactulose (Enulose) 20 gm DAILY PO Last administered on 06/28/18 08:42; Admin Dose 20 GM; Start 06/22/18 at 10:00 Alprazolam (Xanax) 0.5 mg Q4H PRN PO ANXIETY Last administered on 06/27/18 23:01; Admin Dose 0.5 MG; Start 06/22/18 at 19:00 Acetaminophen/ Hydrocodone Bitart ([place] (5/325)) 1 tab Q4H PRN PO PAIN; Start 06/23/18 at 11:30 Docusate Sodium (Colace) 100 mg BID PO Last administered on 06/28/18 08:43; Admin Dose 100 MG; Start 06/23/18 at 21:00 Magnesium Hydroxide (Milk Of Mag) 30 ml DAILY PRN PO CONSTIPATION Last admi nistered on 06/28/18 05:55; Admin Dose 30 ML; Start 06/23/18 at 11:30 Ciprofloxacin (Cipro) 500 mg BID@06,18 PO Last administered on 06/28/18 05:55; Admin Dose 500 MG; Start 06/25/18 at 18:00 Morphine Sulfate (morphine) 2 mg Q3H PRN IV SEVERE PAIN LEVEL 7-10; Start 06/25/18 at 16:30 VTE Prophylaxis Risk score (from Nsg)>0 risk: 10 SCD applied (from Nsg): Yes Lines/Catheters IV Catheter Type: Saline Lock Johnson in Place: Yes Cont'd johnson catheter reason: urinary retention Assessment/Plan Assessment/Plan Persistent gross hematuria, seems to be resolving Acute kidney injury Acute blood loss anemia, stable Status post suprapubic prostatectomy, 2 weeks prior to admission Hypertension Discontinue CBI and observe Physical therapy Urology follow-up Discharge planning if hematuria is resolved HARISH SRINIVASAN MD June 28, 2018 10:28
--- NOTE | 2018-06-28 13:28 | PN ---
Date/Time of Note Date/Time of Note DATE: 06/28/18 TIME: 13:24 Assessment/Plan Lines/Catheters IV Catheter Type (from [facility]): Peripheral IV Johnson in Place (from [facility]): Yes Cont'd johnson catheter reason: urinary retention, other (indicate) (Urological surgery) Assessment/Plan Chief Complaint/Hosp Course The patient is a 77-year-old male who had gross hematuria and urinary retention because of very large prostate. He underwent a suprapubic prostatectomy and then his catheter was removed. He still was not able to urinate. He had a gross hematuria for which he was admitted to the hospital again. He underwent cystoscopy and evacuation of clots and fulguration of prostatic fossa bleeders. The prostate that was removed originally showed foci of prostate cancer. The size of the prostate was 290 g. The patient did also have a urinary tract infection and epididymitis. Presently he is doing better and the return from the bladder irrigation is clear. I will slow down the irrigation so we could stop it in the morning. And if his urine remains clear then we could discharge him home with the Johnson catheter and a leg bag. In the meantime continue the antibiotic that he is on which is Cipro. Subjective 24 Hr Interval Summary The patient is awake and alert and comfortable. He denies having any pain. Exam/Review of Systems Vital Signs Vitals Vital Signs Date Temp Pulse Resp B/P (MAP) Pulse Ox O2 O2 Flow FiO2 Time Delivery Rate 06/28/18 97.7 79 19 146/73 98 08:09 (97) 06/28/18 Room Air 01:40 06/25/18 1.0 15:00 Intake and Output 06/27/18 06/27/18 06/28/18 1414:59 22:59 06:59 IntakeIntake Total 9450 ml 6300 ml 220 ml OutputOutput Total 89793 ml 8200 ml 5500 ml BalanceBalance -3050 ml -1900 ml -5280 ml Exam Free Text/Dictation The Johnson catheter is draining clear urine with the bladder irrigation. There are no clots. Results Result Diagram: 06/28/18 0420 06/28/18 042 ASHLEY VAUGHAN MD June 28, 2018 13:28
[2018-06-28 14:01] VITALS: BP 114/58; PULSE 62; RESP 18
[2018-06-28 20:02] VITALS: BP 127/58; PULSE 72; RESP 18
[2018-06-29] MEDS: TAMSULOSIN (SR) 0.4 MG CAP PO SCH ×2 (00:18→21:11)
[2018-06-29] MEDS: ALPRAZOLAM 0.5 MG TAB PO PRN ×2 (00:20→23:42)
[2018-06-29 01:17] VITALS: BP 127/58; PULSE 70; RESP 18
[2018-06-29] MEDS: CIPROFLOXACIN 500 MG TAB PO SCH ×2 (05:40→18:30)
[2018-06-29 08:17] VITALS: BP 132/62; PULSE 79; RESP 19
--- NOTE | 2018-06-29 08:35 | PN ---
Date/Time of Note Date/Time of Note DATE: 06/29/18 TIME: 08:32 Assessment/Plan Lines/Catheters IV Catheter Type (from [facility]): Saline Lock Johnson in Place (from [facility]): Yes Cont'd johnson catheter reason: urinary retention Assessment/Plan Chief Complaint/Hosp Course The patient is a 77-year-old male who had gross hematuria and urinary retention because of very large prostate. He underwent a suprapubic prostatectomy and then his catheter was removed. He still was not able to urinate. He had gross hematuria for which he was admitted to the hospital again. He underwent cystoscopy and evacuation of clots and fulguration of prostatic fossa bleeders. The prostate that was removed originally showed foci of prostate cancer. The size of the prostate was 290 g. The patient did also have a urinary tract infection and epididymitis. Presently he is doing better and the return from the bladder irrigation is clear. I will stop the irrigation.If his urine remains clear then we could discharge him home with the Johnson catheter and a leg bag. In the meantime continue the Cipro. Subjective 24 Hr Interval Summary Patient is resting comfortable. He has no complaints Exam/Review of Systems Vital Signs Vitals Vital Signs Date Temp Pulse Resp B/P (MAP) Pulse Ox O2 O2 Flow FiO2 Time Delivery Rate 06/29/18 98.0 79 19 132/62 96 Room Air 08:17 (85) 06/25/18 1.0 15:00 Intake and Output 06/28/18 06/28/18 06/29/18 1515:00 23:00 07:00 IntakeIntake Total 3200 ml 600 ml 200 ml OutputOutput Total 900 ml 1350 ml 200 ml BalanceBalance 2300 ml -750 ml 0 ml Exam Free Text/Dictation The Johnson catheter is draining clear urine with the bladder irrigation Results Result Diagram: 06/29/18 0438 06/29/18 0439 ASHLEY VAUGHAN MD June 29, 2018 08:35
[2018-06-29] MEDS: LACTULOSE 30ML CUP PO SCH (09:00)
[2018-06-29] MEDS: DOCUSATE SODIUM 100 MG CAP PO SCH ×2 (09:47→21:11)
[2018-06-29] MEDS: ALLOPURINOL 300 MG TAB PO SCH (09:47)
[2018-06-29] MEDS: FINASTERIDE 5 MG TAB PO SCH (09:47)
[2018-06-29] MEDS: AMLODIPINE 10 MG TAB PO SCH (09:48)
[2018-06-29] MEDS: LISINOPRIL 20 MG TAB PO SCH (09:48)
--- NOTE | 2018-06-29 10:40 | PN ---
Date/Time of Note Date/Time of Note DATE: 06/29/18 TIME: 10:38 Subjective Doing well. No complaints. Objective Vitals Vital Signs Date Temp Pulse Resp B/P (MAP) Pulse Ox O2 O2 Flow FiO2 Time Delivery Rate 06/29/18 98.0 79 19 132/62 96 Room Air 08:17 (85) 06/25/18 1.0 15:00 Intake and Output 06/28/18 06/28/18 06/29/18 1515:00 23:00 07:00 IntakeIntake Total 3200 ml 600 ml 200 ml OutputOutput Total 900 ml 1350 ml 200 ml BalanceBalance 2300 ml -750 ml 0 ml Clear to auscultation bilaterally Regular rate and rhythm Soft nontender nondistended normoactive bowel sounds Johnson catheter with bloody urine No edema Nonfocal Results Result Diagram: 06/29/18 0438 06/29/18 0439 Medications Medications Current Medications Allopurinol (Zyloprim) 300 mg DAILY PO Last administered on 06/29/18 09:47; Admin Dose 300 MG; Start 06/21/18 at 09:00 Amlodipine Besylate (Norvasc) 10 mg DAILY PO Last administered on 06/29/18 09:48; Admin Dose 10 MG; Start 06/21/18 at 09:00 Lisinopril (Zestril) 20 mg DAILY PO Last administered on 06/29/18 09:48; Admin Dose 20 MG; Start 06/21/18 at 09:00 Acetaminophen (Tylenol Tab) 650 mg Q6H PRN PO MILD PAIN(1-3)OR ELEVATED TEMP Last administered on 06/26/18 15:57; Admin Dose 650 MG; Start 06/21/18 at 08:00 Belladonna Alkaloids/Opium (B&O No.15a) 1 supp QID PRN [place] PAIN LEVEL 4-6 Last administered on 06/25/18 17:32; Admin Dose 1 SUPP; Start 06/21/18 at 09:00 Tamsulosin HCl (Flomax) 0.4 mg HS PO Last administered on 06/29/18 00:18; Admin Dose 0.4 MG; Start 06/21/18 at 21:00 Finasteride (Proscar) 5 mg DAILY PO Last administered on 06/29/18 09:47; Admin Dose 5 MG; Start 06/21/18 at 09:00 Lactulose (Enulose) 20 gm DAILY PO Last administered on 06/28/18at 08:42; Admin Dose 20 GM; Start 06/22/18 at 10:00 Alprazolam (Xanax) 0.5 mg Q4H PRN PO ANXIETY Last administered on 06/29/18at 00:20; Admin Dose 0.5 MG; Start 06/22/18 at 19:00 Acetaminophen/ Hydrocodone Bitart ([place] (5/325)) 1 tab Q4H PRN PO PAIN; Start 06/23/18 at 11:30 Docusate Sodium (Colace) 100 mg BID PO Last administered on 06/29/18 09:47; Admin Dose 100 MG; Start 06/23/18 at 21:00 Magnesium Hydroxide (Milk Of Mag) 30 ml DAILY PRN PO CONSTIPATION Last administered on 06/28/18at 05:55; Admin Dose 30 ML; Start 06/23/18 at 11:30 Ciprofloxacin (Cipro) 500 mg BID@06,18 PO Last administered on 06/29/18at 05:40; Admin Dose 500 MG; Start 06/25/18 at 18:00 Morphine Sulfate (morphine) 2 mg Q3H PRN IV SEVERE PAIN LEVEL 7-10; Start 06/25/18 at 16:30 VTE Prophylaxis Risk score (from Nsg)>0 risk: 10 SCD applied (from Nsg): Yes Lines/Catheters IV Catheter Type: Saline Lock Johnson in Place: Yes Cont'd johnson catheter reason: urinary retention Assessment/Plan Assessment/Plan Persistent gross hematuria Status post suprapubic prostatectomy 2 weeks prior to admission Anemia, stable Acute kidney injury, stable Continue to hold bladder irrigation Urology follow-up Discharge planning HARISH SRINIVASAN MD June 29, 2018 10:40
[2018-06-29 15:05] VITALS: BP 117/56; PULSE 70; RESP 18
--- NOTE | 2018-06-29 17:28 | PN ---
Date/Time of Note Date/Time of Note DATE: 06/29/18 TIME: 16:37 Assessment/Plan VTE Prophylaxis Risk score (from Ns)>0 risk: 10 SCD applied (from Ns): Yes Pharmacological prophylaxis: NA/contraindicated Pharm contraindication: other Lines/Catheters IV Catheter Type (from Nrs): Saline Lock Central line still needed: No Urinary Cath still in place: Yes Reason Cath still needed: other (indicate) (Hematuria) Assessment/Plan Hospital Course Has recived 3 units of PRBC, IVF, and IV infusion of Amicar, and Bladder irri gation with improvement Problems: (1) Hematuria Status: Chronic Qualifiers: Hematuria type: gross Qualified Codes: R31.0 - Gross hematuria Assessment/Plan Grossed hematuria after a prostatic surgery done in June 07, 2018. He has been treated with IV Epsilon aminocaproic acid in attempt to inhibit the activity of Plasminogen activator adn decrease Fibrinolysis and stop bleeding. Certainly the treatment has ameliorated the bleeding, but he is still presenting hematuria. There is no evidence so far of consumption coagulopathy. Continues with bladder irrigation. Recommendations Continue with continues bladder irrigation Continue with IV infusion of Epsilon Aminocaproic acid Urology re evaluation Consider repeating cystoscopy as per Urology Monitor hematologic parameters: CBC and platelet counts, PT, PTT, Fibrinogen levels and D- dimers. Cont Hosp Indication/DC Plan: Still with gross hematuria Result Diagram: 06/29/18 0438 06/29/18 0439 Results 24hrs Laboratory Tests Test 06/29/18 04:38 06/29/18 04:39 06/29/18 07:31 White Blood Count 6.3 Red Blood Count 3.84 L Hemoglobin 10.1 L Hematocrit 31.7 L Mean Corpuscular Volume 82.6 Mean Corpuscular Hemoglobin 26.3 L Mean Corpuscular 31.9 L Hemoglobin Concent Red Cell Distribution Width 17.0 H Platelet Count 150 Mean Platelet Volume 13.2 H Immature Granulocytes % 0.900 H Neutrophils % 62.8 Lymphocytes % 25.1 Monocytes % 6.9 Eosinophils % 3.5 Basophils % 0.8 Nucleated Red Blood Cells % 0.0 Immature Granulocytes # 0.060 H Neutrophils # 4.0 Lymphocytes # 1.6 Monocytes # 0.4 Eosinophils # 0.2 Basophils # 0.1 Nucleated Red Blood Cells # 0.0 Sodium Level 140 Potassium Level 4.2 Chloride Level 110 Carbon Dioxide Level 24 Anion Gap 6 Blood Urea Nitrogen 22 H Creatinine 1.35 H Est Glomerular Filtrat Rate mL/min Glucose Level 101 Calcium Level 9.0 Lab Scanned Report BLOOD TRANSFUSION CC: DORYS MORA ; Subjective 24 Hr Interval Summary Free Text/Dictation Mr. Mancia is still presenting gross hematuria, although his bleeding has subsided significantly. No further obstruction of the urinary folley by clots. He has received III units of PRBC during this hospitalization Subjective hx not possible: other (Communicative and cooperative) Constitutional: no complaints Eyes: other (No ictericia) ENT: other (Clear oropharynx) Respiratory: no complaints Cardiovascular: no complaints Gastrointestinal: no complaints Genitourinary: bleeding Musculoskeletal: back pain Skin: bruising Neurologic: no complaints Endocrine: no complaints Lymphatic: no complaints Psychological: no complaints, nl mood/affect Exam/Review of Systems Exam Vitals Vital Signs Date Temp Pulse Resp B/P (MAP) Pulse Ox O2 O2 Flow FiO2 Time Delivery Rate 06/29/18 98.3 70 18 117/56 99 Room Air 15:05 (76) 06/25/18 1.0 15:00 Intake and Output 06/28/18 06/28/18 06/29/18 1515:00 23:00 07:00 IntakeIntake Total 3200 ml 600 ml 200 ml OutputOutput Total 900 ml 1350 ml 200 ml BalanceBalance 2300 ml -750 ml 0 ml Constitutional: alert, oriented, well developed Psych: nl mood/affect Head: normocephalic, atraumatic Eyes: nl conjunctiva, EOMI, nl lids, nl sclera, PERRL ENMT: nl external ears & nose, nl lips & teeth, nl nasal mucosa & septum Neck: supple, non-tender Respiratory: clear to auscultation, other (Clear to ausculation) Cardiovascular: regular rate and rhythm Gastrointestinal: soft, nl liver, spleen, non-tender Genitourinary - Male: other (urinary folley in place) Musculoskeletal: nl extremities to inspection Neurological: FIBERGLASS ROLLER II-XII intact, nl mental status, nl speech, nl strength Skin: nl turgor Lymph: nontender Results Results 24hrs Laboratory Tests Test 06/29/18 04:38 06/29/18 04:39 06/29/18 07:31 White Blood Count 6.3 Red Blood Count 3.84 L Hemoglobin 10.1 L Hematocrit 31.7 L Mean Corpuscular Volume 82.6 Mean Corpuscular Hemoglobin 26.3 L Mean Corpuscular 31.9 L Hemoglobin Concent Red Cell Distribution Width 17.0 H Platelet Count 150 Mean Platelet Volume 13.2 H Immature Granulocytes % 0.900 H Neutrophils % 62.8 Lymphocytes % 25.1 Monocytes % 6.9 Eosinophils % 3.5 Basophils % 0.8 Nucleated Red Blood Cells % 0.0 Immature Granulocytes # 0.060 H Neutrophils # 4.0 Lymphocytes # 1.6 Monocytes # 0.4 Eosinophils # 0.2 Basophils # 0.1 Nucleated Red Blood Cells # 0.0 Sodium Level 140 Potassium Level 4.2 Chloride Level 110 Carbon Dioxide Level 24 Anion Gap 6 Blood Urea Nitrogen 22 H Creatinine 1.35 H Est Glomerular Filtrat Rate mL/min Glucose Level 101 Calcium Level 9.0 Lab Scanned Report BLOOD TRANSFUSION Medications Medication Current Medications Allopurinol (Zyloprim) 300 mg DAILY PO Last administered on 06/29/18 09:47; Admin Dose 300 MG; Start 06/21/18 at 09:00 Amlodipine Besylate (Norvasc) 10 mg DAILY PO Last administered on 06/29/18 09:48; Admin Dose 10 MG; Start 06/21/18 at 09:00 Lisinopril (Zestril) 20 mg DAILY PO Last administered on 06/29/18 09:48; Admin Dose 20 MG; Start 06/21/18 at 09:00 Acetaminophen (Tylenol Tab) 650 mg Q6H PRN PO MILD PAIN(1-3)OR ELEVATED TEMP Last administered on 06/26/18 15:57; Admin Dose 650 MG; Start 06/21/18 at 08:00 Belladonna Alkaloids/Opium (B&O No.15a) 1 supp QID PRN [place] PAIN LEVEL 4-6 Last administered on 06/25/18 17:32; Admin Dose 1 SUPP; Start 06/21/18 at 09:00 Tamsulosin HCl (Flomax) 0.4 mg HS PO Last administered on 06/29/18 00:18; Admin Dose 0.4 MG; Start 06/21/18 at 21:00 Finasteride (Proscar) 5 mg DAILY PO Last administered on 06/29/18 09:47; Admin Dose 5 MG; Start 06/21/18 at 09:00 Lactulose (Enulose) 20 gm DAILY PO Last administered on 06/28/18 08:42; Admin Dose 20 GM; Start 06/22/18 at 10:00 Alprazolam (Xanax) 0.5 mg Q4H PRN PO ANXIETY Last administered on 06/29/18 00:20; Admin Dose 0.5 MG; Start 06/22/18 at 19:00 Acetaminophen/ Hydrocodone Bitart ([place] (5/325)) 1 tab Q4H PRN PO PAIN; Start 06/23/18 at 11:30 Docusate Sodium (Colace) 100 mg BID PO Last administered on 06/29/18 09:47; Admin Dose 100 MG; Start 06/23/18 at 21:00 Magnesium Hydroxide (Milk Of Mag) 30 ml DAILY PRN PO CONSTIPATION Last administered on 06/28/18 05:55; Admin Dose 30 ML; Start 06/23/18 at 11:30 Ciprofloxacin (Cipro) 500 mg BID@,18 PO Last administered on 06/29/18 05:40; Admin Dose 500 MG; Start 06/25/18 at 18:00 Morphine Sulfate (morphine) 2 mg Q3H PRN IV SEVERE PAIN LEVEL 7-10; Start 06/25/18 at 16:30 ERIC SOTELO MD June 29, 2018 16:48
[2018-06-29 19:34] VITALS: BP 120/60; PULSE 74; RESP 18
[2018-06-29 20:00] VITALS: BP 121/56; PULSE 75; RESP 18
[2018-06-30] MEDS: CIPROFLOXACIN 500 MG TAB PO SCH ×2 (06:23→17:36)
[2018-06-30 07:30] VITALS: BP 124/62; PULSE 78; RESP 19
--- NOTE | 2018-06-30 08:10 | PN ---
Date/Time of Note Date/Time of Note DATE: 06/30/18 TIME: 08:07 Assessment/Plan Lines/Catheters IV Catheter Type (from [facility]): Saline Lock Simon in Place (from [facility]): Yes Assessment/Plan Chief Complaint/Hosp Course The patient is a 77-year-old male who had gross hematuria and urinary retention because of very large prostate. He underwent a suprapubic prostatectomy and then his catheter was removed. He still was not able to urinate. He had gross hematuria for which he was admitted to the hospital again. He underwent cystoscopy and evacuation of clots and fulguration of prostatic fossa bleeders. The prostate that was removed originally showed foci of prostate cancer. The size of the prostate was 290 g. The patient did also have a urinary tract infe ction and epididymitis. The bladder irrigation was stopped yesterday morning however he started having bloody urine in the afternoon and the irrigation was restarted. We will have to keep the irrigation on and gradually slow it down. Once we stop it and the urine remains clear then we could discharge. I did start him on ferrous sulfate to help him with his anemia. Subjective 24 Hr Interval Summary The patient is comfortable. He is status post suprapubic prostatectomy. He has had urinary tract infection and gross hematuria. He is on continuous bladder i rrigation. Exam/Review of Systems Vital Signs Vitals Vital Signs Date Temp Pulse Resp B/P (MAP) Pulse Ox O2 O2 Flow FiO2 Time Delivery Rate 06/30/18 98.2 78 19 124/62 98 07:30 (82) 06/29/18 Room Air 20:00 Intake and Output 06/29/18 06/29/18 06/30/18 1515:00 23:00 07:00 IntakeIntake Total 3000 ml 3550 ml 250 ml OutputOutput Total 2500 ml 8000 ml 1500 ml BalanceBalance 500 ml -4450 ml -1250 ml Exam Free Text/Dictation The Simon catheter is draining clear urine with the irrigation. Results Result Diagram: 06/30/18 0438 06/29/18 0439 ASHLEY VAUGHAN MD June 30, 2018 08:10
[2018-06-30] MEDS: FINASTERIDE 5 MG TAB PO SCH (09:18)
[2018-06-30] MEDS: ALLOPURINOL 300 MG TAB PO SCH (09:18)
[2018-06-30] MEDS: FERROUS SULFATE (EC) 325 MG TAB PO SCH ×2 (09:18→20:10)
[2018-06-30] MEDS: DOCUSATE SODIUM 100 MG CAP PO SCH ×2 (09:18→20:10)
[2018-06-30] MEDS: AMLODIPINE 10 MG TAB PO SCH (09:19)
[2018-06-30] MEDS: LISINOPRIL 20 MG TAB PO SCH (09:19)
[2018-06-30] MEDS: LACTULOSE 30ML CUP PO SCH (09:20)
--- NOTE | 2018-06-30 11:37 | PN ---
Date/Time of Note Date/Time of Note DATE: 06/30/18 TIME: 11:35 Subjective Patient was observed walking with physical therapist. Continues to have gross hematuria. No complaints of pain Objective Vitals Vital Signs Date Temp Pulse Resp B/P (MAP) Pulse Ox O2 O2 Flow FiO2 Time Delivery Rate 06/30/18 98.2 78 19 124/62 98 07:30 (82) 06/29/18 Room Air 20:00 Intake and Output 06/29/18 06/29/18 06/30/18 1515:00 23:00 07:00 IntakeIntake Total 3000 ml 3550 ml 250 ml OutputOutput Total 2500 ml 8000 ml 1500 ml BalanceBalance 500 ml -4450 ml -1250 ml Clear to auscultation bilaterally Regular rate and rhythm Soft nontender nondistended normoactive bowel sounds Johnson catheter with cranberry colored urine No edema Nonfocal Results Result Diagram: 06/30/18 0438 06/29/18 0439 Medications Medications Current Medications Allopurinol (Zyloprim) 300 mg DAILY PO Last administered on 06/30/18at 09:18; Admin Dose 300 MG; Start 06/21/18 at 09:00 Amlodipine Besylate (Norvasc) 10 mg DAILY PO Last administered on 06/30/18 09:19; Admin Dose 10 MG; Start 06/21/18 at 09:00 Lisinopril (Zestril) 20 mg DAILY PO Last administered on 06/30/18at 09:19; Admin Dose 20 MG; Start 06/21/18 at 09:00 Acetaminophen (Tylenol Tab) 650 mg Q6H PRN PO MILD PAIN(1-3)OR ELEVATED TEMP Last administered on 06/26/18at 15:57; Admin Dose 650 MG; Start 06/21/18 at 08:00 Belladonna Alkaloids/Opium (B&O No.15a) 1 supp QID PRN [place] PAIN LEVEL 4-6 Last administered on 06/25/18at 17:32; Admin Dose 1 SUPP; Start 06/21/18 at 09:00 Tamsulosin HCl (Flomax) 0.4 mg HS PO Last administered on 06/29/18at 21:11; Admin Dose 0.4 MG; Start 06/21/18 at 21:00 Finasteride (Proscar) 5 mg DAILY PO Last administered on 06/30/18 09:18; Admin Dose 5 MG; Start 06/21/18 at 09:00 Lactulose (Enulose) 20 gm DAILY PO Last administered on 06/30/18 09:20; Admin Dose 20 GM; Start 06/22/18 at 10:00 Alprazolam (Xanax) 0.5 mg Q4H PRN PO ANXIETY Last administered on 06/29/18 23:42; Admin Dose 0.5 MG; Start 06/22/18 at 19:00 Acetaminophen/ Hydrocodone Bitart ([place] (5/325)) 1 tab Q4H PRN PO PAIN; Start 06/23/18 at 11:30 Docusate Sodium (Colace) 100 mg BID PO Last administered on 06/30/18 09:18; Admin Dose 100 MG; Start 06/23/18 at 21:00 Magnesium Hydroxide (Milk Of Mag) 30 ml DAILY PRN PO CONSTIPATION Last administered on 06/28/18 05:55; Admin Dose 30 ML; Start 06/23/18 at 11:30 Ciprofloxacin (Cipro) 500 mg BID@06,18 PO Last administered on 06/30/18 06:23; Admin Dose 500 MG; Start 06/25/18 at 18:00 Morphine Sulfate (morphine) 2 mg Q3H PRN IV SEVERE PAIN LEVEL 7-10; Start 06/25/18 at 16:30 Ferrous Sulfate (Ferrous Sulfate (Ec)) 325 mg BID PO Last administered on 06/30/18 09:18; Admin Dose 325 MG; Start 06/30/18 at 09:00 VTE Prophylaxis Risk score (from Nsg)>0 risk: 5 SCD applied (from Nsg): Yes Lines/Catheters IV Catheter Type: Saline Lock Johnson in Place: Yes Cont'd johnson catheter reason: urinary retention Assessment/Plan Assessment/Plan Persistent gross hematuria Status post suprapubic prostatectomy Anemia, stable Acute kidney injury, stable Continue bladder irrigation as needed Monitor labs Case was discussed with urologist HARISH SRINIVASAN MD June 30, 2018 11:37
[2018-06-30 19:54] VITALS: BP 122/63; PULSE 77; RESP 17
[2018-06-30] MEDS: TAMSULOSIN (SR) 0.4 MG CAP PO SCH (20:10)
[2018-06-30] MEDS: ALPRAZOLAM 0.5 MG TAB PO PRN (22:34)
[2018-07-01 01:28] VITALS: BP 128/74; PULSE 74; RESP 18
[2018-07-01] MEDS: CIPROFLOXACIN 500 MG TAB PO SCH ×2 (05:50→18:02)
[2018-07-01 07:23] VITALS: BP 143/67; PULSE 78; RESP 18
[2018-07-01] MEDS: ALLOPURINOL 300 MG TAB PO SCH (09:10)
[2018-07-01] MEDS: FINASTERIDE 5 MG TAB PO SCH (09:10)
[2018-07-01] MEDS: FERROUS SULFATE (EC) 325 MG TAB PO SCH ×2 (09:10→20:27)
[2018-07-01] MEDS: LACTULOSE 30ML CUP PO SCH (09:10)
[2018-07-01] MEDS: AMLODIPINE 10 MG TAB PO SCH (09:11)
[2018-07-01] MEDS: DOCUSATE SODIUM 100 MG CAP PO SCH ×2 (09:11→20:27)
[2018-07-01] MEDS: LISINOPRIL 20 MG TAB PO SCH (09:11)
--- NOTE | 2018-07-01 10:41 | PN ---
Date/Time of Note Date/Time of Note DATE: 07/01/18 TIME: 10:40 Subjective Doing well. No new complaints. Objective Vitals Vital Signs Date Temp Pulse Resp B/P (MAP) Pulse Ox O2 O2 Flow FiO2 Time Delivery Rate 07/01/18 97.9 78 18 143/67 97 Room Air 07:23 (92) Intake and Output 06/30/18 06/30/18 07/01/18 1414:59 22:59 06:59 IntakeIntake Total 200 ml 800 ml OutputOutput Total 800 ml 3650 ml BalanceBalance -600 ml -2850 ml Clear to auscultation bilaterally Regular rate and rhythm Soft nontender nondistended normoactive bowel sounds Johnson with bloody urine No edema Nonfocal Results Result Diagram: 07/01/18 0424 07/01/18 0424 Medications Medications Current Medications Allopurinol (Zyloprim) 300 mg DAILY PO Last administered on 07/01/18 09:10; Admin Dose 300 MG; Start 06/21/18 at 09:00 Amlodipine Besylate (Norvasc) 10 mg DAILY PO Last administered on 07/01/18 09:11; Admin Dose 10 MG; Start 06/21/18 at 09:00 Lisinopril (Zestril) 20 mg DAILY PO Last administered on 07/01/18 09:11; Admin Dose 20 MG; Start 06/21/18 at 09:00 Acetaminophen (Tylenol Tab) 650 mg Q6H PRN PO MILD PAIN(1-3)OR ELEVATED TEMP Last administered on 06/26/18 15:57; Admin Dose 650 MG; Start 06/21/18 at 08:00 Belladonna Alkaloids/Opium (B&O No.15a) 1 supp QID PRN [place] PAIN LEVEL 4-6 Last administered on 06/25/18 17:32; Admin Dose 1 SUPP; Start 06/21/18 at 09:00 Tamsulosin HCl (Flomax) 0.4 mg HS PO Last administered on 06/30/18 20:10; Admin Dose 0.4 MG; Start 06/21/18 at 21:00 Finasteride (Proscar) 5 mg DAILY PO Last administered on 07/01/18 09:10; Admin Dose 5 MG; Start 06/21/18 at 09:00 Lactulose (Enulose) 20 gm DAILY PO Last administered on 07/01/18 09:10; Admin Dose 20 GM; Start 06/22/18 at 10:00 Alprazolam (Xanax) 0.5 mg Q4H PRN PO ANXIETY Last administered on 06/30/18at 22:34; Admin Dose 0.5 MG; Start 06/22/18 at 19:00 Acetaminophen/ Hydrocodone Bitart ([place] (5/325)) 1 tab Q4H PRN PO PAIN; Start 06/23/18 at 11:30 Docusate Sodium (Colace) 100 mg BID PO Last administered on 07/01/18 09:11; Admin Dose 100 MG; Start 06/23/18 at 21:00 Magnesium Hydroxide (Milk Of Mag) 30 ml DAILY PRN PO CONSTIPATION Last administered on 06/28/18 05:55; Admin Dose 30 ML; Start 06/23/18 at 11:30 Ciprofloxacin (Cipro) 500 mg BID@06,18 PO Last administered on 07/01/18 05:50; Admin Dose 500 MG; Start 06/25/18 at 18:00 Morphine Sulfate (morphine) 2 mg Q3H PRN IV SEVERE PAIN LEVEL 7-10; Start at 16:30 Ferrous Sulfate (Ferrous Sulfate (Ec)) 325 mg BID PO Last administered on 07/01/18 09:10; Admin Dose 325 MG; Start 06/30/18 at 09:00 VTE Prophylaxis Risk score (from Nsg)>0 risk: 10 SCD applied (from Nsg): Yes Lines/Catheters IV Catheter Type: Saline Lock Johnson in Place: Yes Cont'd johnson catheter reason: urinary retention Assessment/Plan Assessment/Plan Persistent gross hematuria Status post suprapubic prostatectomy Acute blood loss anemia, stable Acute kidney injury, stable Continue bladder irrigation as needed Urology follow-up Monitor labs HARISH SRINIVASAN MD July 01, 2018 10:41
--- NOTE | 2018-07-01 12:35 | PN ---
Date/Time of Note Date/Time of Note DATE: 07/01/18 TIME: 12:32 Assessment/Plan Lines/Catheters IV Catheter Type (from [facility]): Saline Lock Ismon in Place (from [facility]): Yes Assessment/Plan Chief Complaint/Hosp Course The patient is a 77-year-old male who had gross hematuria and urinary retention because of very large prostate. He underwent a suprapubic prostatectomy and then his catheter was removed. He still was not able to urinate. He had gross hematuria for which he was admitted to the hospital again. He underwent cystoscopy and evacuation of clots and fulguration of prostatic fossa bleeders. The prostate that was removed originally showed foci of prostate cancer. The size of the prostate was 290 g. The patient did also have a urinary tract infe ction and epididymitis. When the bladder irrigation was stopped he started having hematuria again and the irrigation was restarted again. I did deflate the balloon of the Simon catheter and it had about 90 mL in it. I advanced the catheter further into the bladder and reinflated the balloon with 100 mL of sterile water and put it under traction with the hope it will press on the bleeders and stop the bleeding. We will continue the bladder irrigation. Subjective 24 Hr Interval Summary Patient is comfortable, he denies any pain. No events overnight. Exam/Review of Systems Vital Signs Vitals Vital Signs Date Temp Pulse Resp B/P (MAP) Pulse Ox O2 O2 Flow FiO2 Time Delivery Rate 07/01/18 97.9 78 18 143/67 97 Room Air 07:23 (92) Intake and Output 06/30/18 06/30/18 07/01/18 1414:59 22:59 06:59 IntakeIntake Total 200 ml 800 ml OutputOutput Total 800 ml 3650 ml BalanceBalance -600 ml -2850 ml Exam Free Text/Dictation Patient is awake and alert and denies having any pain. The return from the bladder irrigation is clear however when the irrigation is slowed down the urine turns blood-tinged. Results Result Diagram: 07/01/18 0424 07/01/18 0424 ASHLEY VAUGHAN MD July 01, 2018 12:35
[2018-07-01 14:00] VITALS: BP 135/62; PULSE 76; RESP 18
[2018-07-01 20:25] VITALS: BP 141/63; PULSE 77; RESP 20
[2018-07-01] MEDS: TAMSULOSIN (SR) 0.4 MG CAP PO SCH (20:27)
[2018-07-01] MEDS: ALPRAZOLAM 0.5 MG TAB PO PRN (22:39)
[2018-07-02 01:45] VITALS: BP 138/62; PULSE 87; RESP 18
[2018-07-02] MEDS: CIPROFLOXACIN 500 MG TAB PO SCH ×2 (05:18→17:42)
[2018-07-02] MEDS: FERROUS SULFATE (EC) 325 MG TAB PO SCH ×2 (08:44→21:04)
[2018-07-02] MEDS: LACTULOSE 30ML CUP PO SCH (08:44)
[2018-07-02] MEDS: DOCUSATE SODIUM 100 MG CAP PO SCH ×2 (08:44→21:04)
[2018-07-02] MEDS: LISINOPRIL 20 MG TAB PO SCH (08:45)
[2018-07-02] MEDS: ALLOPURINOL 300 MG TAB PO SCH (08:45)
[2018-07-02] MEDS: FINASTERIDE 5 MG TAB PO SCH (08:46)
[2018-07-02] MEDS: AMLODIPINE 10 MG TAB PO SCH (08:46)
[2018-07-02 09:15] VITALS: BP 129/60; PULSE 75; RESP 18
--- NOTE | 2018-07-02 09:46 | PN ---
Date/Time of Note Date/Time of Note DATE: 07/02/18 TIME: 09:44 Subjective Doing well. Continues to have mild gross hematuria. Objective Vitals Vital Signs Date Temp Pulse Resp B/P (MAP) Pulse Ox O2 O2 Flow FiO2 Time Delivery Rate 07/02/18 97.6 75 18 129/60 98 09:15 (83) 07/01/18 Room Air 14:00 Intake and Output 07/01/18 07/01/18 07/02/18 1515:00 23:00 07:00 IntakeIntake Total 300 ml 950 ml 1040 ml OutputOutput Total 500 ml 500 ml 4058 ml BalanceBalance -200 ml 450 ml -3018 ml Clear to auscultation bilaterally Regular rate and rhythm Soft nontender nondistended normoactive bowel sounds Johnson catheter in place with cranberry colored urine No edema Nonfocal Results Result Diagram: 07/02/18 0415 07/02/18 0415 Medications Medications Current Medications Allopurinol (Zyloprim) 300 mg DAILY PO Last administered on 07/02/18 08:45; Admin Dose 300 MG; Start 06/21/18 at 09:00 Amlodipine Besylate (Norvasc) 10 mg DAILY PO Last administered on 07/02/18 08:46; Admin Dose 10 MG; Start 06/21/18 at 09:00 Lisinopril (Zestril) 20 mg DAILY PO Last administered on 07/02/18 08:45; Admin Dose 20 MG; Start 06/21/18 at 09:00 Acetaminophen (Tylenol Tab) 650 mg Q6H PRN PO MILD PAIN(1-3)OR ELEVATED TEMP Last administered on 06/26/18 15:57; Admin Dose 650 MG; Start 06/21/18 at 08:00 Belladonna Alkaloids/Opium (B&O No.15a) 1 supp QID PRN [place] PAIN LEVEL 4-6 Last administered on 06/25/18 17:32; Admin Dose 1 SUPP; Start 06/21/18 at 09:00 Tamsulosin HCl (Flomax) 0.4 mg HS PO Last administered on 07/01/18 20:27; Admin Dose 0.4 MG; Start 06/21/18 at 21:00 Finasteride (Proscar) 5 mg DAILY PO Last administered on 07/02/18 08:46; Admin Dose 5 MG; Start 06/21/18 at 09:00 Lactulose (Enulose) 20 gm DAILY PO Last administered on 07/02/18 08:44; Admin Dose 20 GM; Start 06/22/18 at 10:00 Alprazolam (Xanax) 0.5 mg Q4H PRN PO ANXIETY Last administered on 07/01/18 22:39; Admin Dose 0.5 MG; Start 06/22/18 at 19:00 Acetaminophen/ Hydrocodone Bitart ([place] (5/325)) 1 tab Q4H PRN PO PAIN; Start 06/23/18 at 11:30 Docusate Sodium (Colace) 100 mg BID PO Last administered on 07/02/18 08:44; Admin Dose 100 MG; Start 06/23/18 at 21:00 Magnesium Hydroxide (Milk Of Mag) 30 ml DAILY PRN PO CONSTIPATION Last administered on 06/28/18 05:55; Admin Dose 30 ML; Start 06/23/18 at 11:30 Ciprofloxacin (Cipro) 500 mg BID@06,18 PO Last administered on 07/02/18 05:18; Admin Dose 500 MG; Start 06/25/18 at 18:00 Morphine Sulfate (morphine) 2 mg Q3H PRN IV SEVERE PAIN LEVEL 7-10; Start 06/25/18 at 16:30 Ferrous Sulfate (Ferrous Sulfate (Ec)) 325 mg BID PO Last administered on 07/02/18 08:44; Admin Dose 325 MG; Start 06/30/18 at 09:00 VTE Prophylaxis Risk score (from Nsg)>0 risk: 5 SCD applied (from Nsg): Yes Lines/Catheters IV Catheter Type: Saline Lock Johnson in Place: Yes Cont'd johnson catheter reason: urinary retention Assessment/Plan Assessment/Plan 77-year-old male with persistent gross hematuria Status post suprapubic prostatectomy 2 weeks prior to admission Acute kidney injury, resolved Continue bladder irrigation as needed Urology follow-up Discharge planning home when okay with urology HARISH SRINIVASAN MD July 02, 2018 09:46
[2018-07-02 13:36] VITALS: BP 126/57; PULSE 70; RESP 20
--- NOTE | 2018-07-02 19:02 | PN ---
Date/Time of Note Date/Time of Note DATE: 07/02/18 TIME: 18:59 Assessment/Plan VTE Prophylaxis Risk [place]from [facility] [place] risk: 5 SCD applied (from [facility] [place] Yes Pharmacological prophylaxis: NA/contraindicated (Bleeding) Pharm contraindication: bleeding Lines/Catheters IV Catheter Type (from [facility] Saline Lock Urinary Cath still in place: Yes Reason Cath still needed: urinary retention Assessment/Plan Hospital Course The patient is a 77-year-old male who had gross hematuria and urinary retention because of very large prostate. He underwent a suprapubic prostatectomy and then his catheter was removed. He still was not able to urinate. He had gross hematuria for which he was admitted to the hospital again. He underwent cystoscopy and evacuation of clots and fulguration of prostatic fossa bleeders. The prostate that was removed originally showed foci of prostate cancer. The size of the prostate was 290 g. The patient did also have a urinary tract infection and epididymitis. When the bladder irrigation was stopped he started having hematuria again and the irrigation was restarted again. I did deflate the balloon of the Simon catheter and it had about 90 mL in it. I advanced the catheter further into the bladder and reinflated the balloon with 100 mL of sterile water and put it under traction. I did release the traction today. Continue the bladder irrigation and if the return is clear tomorrow I will stop the irrigation and then plan to discharge him home the following day with the Simon catheter. Result Diagram: 07/02/18 0415 07/02/18 0415 Results 24hrs Laboratory Tests Test 07/02/18 04:15 White Blood Count 5.6 Red Blood Count 3.87 L Hemoglobin 10.1 L Hematocrit 32.1 L Mean Corpuscular Volume 82.9 Mean Corpuscular Hemoglobin 26.1 L Mean Corpuscular Hemoglobin Concent 31.5 L Red Cell Distribution Width 17.0 H Platelet Count 133 L Mean Platelet Volume 13.0 H Immature Granulocytes % 0.700 H Neutrophils % 60.6 Lymphocytes % 26.3 Monocytes % 8.0 Eosinophils % 3.9 Basophils % 0.5 Nucleated Red Blood Cells % 0.0 Immature Granulocytes # 0.040 H Neutrophils # 3.4 Lymphocytes # 1.5 Monocytes # 0.5 Eosinophils # 0.2 Basophils # 0.0 Nucleated Red Blood Cells # 0.0 Sodium Level 142 Potassium Level 4.2 Chloride Level 112 H Carbon Dioxide Level 22 Anion Gap 8 Blood Urea Nitrogen 24 H Creatinine 1.18 Est Glomerular Filtrat Rate mL/min Glucose Level 96 Calcium Level 8.6 Subjective 24 Hr Interval Summary Free Text/Dictation Patient denies having any pain. He does have some urine with blood coming around the catheter. He had a good bowel movement yesterday. Exam/Review of Systems Exam Vitals Vital Signs Date Temp Pulse Resp B/P (MAP) Pulse Ox O2 O2 Flow FiO2 Time Delivery Rate 07/02/18 98.4 70 20 126/57 97 13:36 (80) 07/01/18 Room Air 14:00 Intake and Output 07/01/18 07/01/18 07/02/18 1515:00 23:00 07:00 IntakeIntake Total 300 ml 950 ml 1040 ml OutputOutput Total 500 ml 500 ml 4058 ml BalanceBalance -200 ml 450 ml -3018 ml Exam Patient is awake and alert and the Siomn catheter is draining blood tinged urine with a slow running continuous bladder irrigation. Results Results 24hrs Laboratory Tests Test 07/02/18 04:15 White Blood Count 5.6 Red Blood Count 3.87 L Hemoglobin 10.1 L Hematocrit 32.1 L Mean Corpuscular Volume 82.9 Mean Corpuscular Hemoglobin 26.1 L Mean Corpuscular Hemoglobin Concent 31.5 L Red Cell Distribution Width 17.0 H Platelet Count 133 L Mean Platelet Volume 13.0 H Immature Granulocytes % 0.700 H Neutrophils % 60.6 Lymphocytes % 26.3 Monocytes % 8.0 Eosinophils % 3.9 Basophils % 0.5 Nucleated Red Blood Cells % 0.0 Immature Granulocytes # 0.040 H Neutrophils # 3.4 Lymphocytes # 1.5 Monocytes # 0.5 Eosinophils # 0.2 Basophils # 0.0 Nucleated Red Blood Cells # 0.0 Sodium Level 142 Potassium Level 4.2 Chloride Level 112 H Carbon Dioxide Level 22 Anion Gap 8 Blood Urea Nitrogen 24 H Creatinine 1.18 Est Glomerular Filtrat Rate mL/min Glucose Level 96 Calcium Level 8.6 Medications Medication Current Medications Allopurinol (Zyloprim) 300 mg DAILY PO Last administered on 07/02/18at 08:45; Admin Dose 300 MG; Start 06/21/18 at 09:00 Amlodipine Besylate (Norvasc) 10 mg DAILY PO Last administered on 07/02/18 08:46; Admin Dose 10 MG; Start 06/21/18 at 09:00 Lisinopril (Zestril) 20 mg DAILY PO Last administered on 07/02/18 08:45; Admin Dose 20 MG; Start 06/21/18 at 09:00 Acetaminophen (Tylenol Tab) 650 mg Q6H PRN PO MILD PAIN(1-3)OR ELEVATED TEMP Last administered on 06/26/18 15:57; Admin Dose 650 MG; Start 06/21/18 at 08:00 Belladonna Alkaloids/Opium (B&O No.15a) 1 supp QID PRN [place] PAIN LEVEL 4-6 Last administered on 06/25/18 17:32; Admin Dose 1 SUPP; Start 06/21/18 at 09:00 Tamsulosin HCl (Flomax) 0.4 mg HS PO Last administered on 07/01/18 20:27; Admin Dose 0.4 MG; Start 06/21/18 at 21:00 Finasteride (Proscar) 5 mg DAILY PO Last administered on 07/02/18 08:46; Admin Dose 5 MG; Start 06/21/18 at 09:00 Lactulose (Enulose) 20 gm DAILY PO Last administered on 07/02/18 08:44; Admin Dose 20 GM; Start 06/22/18 at 10:00 Alprazolam (Xanax) 0.5 mg Q4H PRN PO ANXIETY Last administered on 07/01/18 22:39; Admin Dose 0.5 MG; Start 06/22/18 at 19:00 Acetaminophen/ Hydrocodone Bitart ([place] (5/325)) 1 tab Q4H PRN PO PAIN; Start 06/23/18 at 11:30 Docusate Sodium (Colace) 100 mg BID PO Last administered on 07/02/18 08:44; Admin Dose 100 MG; Start 06/23/18 at 21:00 Magnesium Hydroxide (Milk Of Mag) 30 ml DAILY PRN PO CONSTIPATION Last administered on 06/28/18 05:55; Admin Dose 30 ML; Start 06/23/18 at 11:30 Ciprofloxacin (Cipro) 500 mg BID@ PO Last administered on 07/02/18 17:42; Admin Dose 500 MG; Start 06/25/18 at 18:00 Morphine Sulfate (morphine) 2 mg Q3H PRN IV SEVERE PAIN LEVEL 7-10; Start 06/25/18 at 16:30 Ferrous Sulfate (Ferrous Sulfate (Ec)) 325 mg BID PO Last administered on 07/02/18at 08:44; Admin Dose 325 MG; Start 06/30/18 at 09:00 ASHLEY VAUGHAN MD July 02, 2018 19:02
[2018-07-02 19:30] VITALS: BP 117/58; PULSE 69; RESP 18
[2018-07-02] MEDS: TAMSULOSIN (SR) 0.4 MG CAP PO SCH (21:04)
[2018-07-02] MEDS: ALPRAZOLAM 0.5 MG TAB PO PRN (22:57)
[2018-07-03 02:01] VITALS: BP 121/57; PULSE 71; RESP 18
[2018-07-03] MEDS: CIPROFLOXACIN 500 MG TAB PO SCH ×2 (06:09→17:45)
[2018-07-03 08:02] VITALS: BP 106/55; PULSE 69; RESP 18
[2018-07-03] MEDS: AMLODIPINE 10 MG TAB PO SCH (08:29)
[2018-07-03] MEDS: FERROUS SULFATE (EC) 325 MG TAB PO SCH ×2 (08:29→20:57)
[2018-07-03] MEDS: LISINOPRIL 20 MG TAB PO SCH (08:30)
[2018-07-03] MEDS: FINASTERIDE 5 MG TAB PO SCH (08:30)
[2018-07-03] MEDS: DOCUSATE SODIUM 100 MG CAP PO SCH ×2 (08:30→20:57)
[2018-07-03] MEDS: LACTULOSE 30ML CUP PO SCH (08:30)
[2018-07-03] MEDS: ALLOPURINOL 300 MG TAB PO SCH (08:30)
--- NOTE | 2018-07-03 09:04 | PN ---
Date/Time of Note Date/Time of Note DATE: 07/03/18 TIME: 09:03 Subjective Doing well. No complaints. Objective Vitals Vital Signs Date Temp Pulse Resp B/P (MAP) Pulse Ox O2 O2 Flow FiO2 Time Delivery Rate 07/03/18 97.5 69 18 106/55 96 Room Air 08:02 (72) Intake and Output 07/02/18 07/02/18 07/03/18 1515:00 23:00 07:00 IntakeIntake Total 840 ml 1140 ml 60 ml OutputOutput Total 2950 ml 1500 ml BalanceBalance -2110 ml -360 ml 60 ml Clear to auscultation bilaterally Regular rate and rhythm Soft nontender normoactive bowel sounds Johnson catheter with cranberry colored urine No edema Nonfocal Results Result Diagram: 07/03/18 0428 07/03/18 0428 Medications Medications Current Medications Allopurinol (Zyloprim) 300 mg DAILY PO Last administered on 07/03/18 08:30; Admin Dose 300 MG; Start 06/21/18 at 09:00 Amlodipine Besylate (Norvasc) 10 mg DAILY PO Last administered on 07/03/18 08:29; Admin Dose 10 MG; Start 06/21/18 at 09:00 Lisinopril (Zestril) 20 mg DAILY PO Last administered on 07/03/18 08:30; Admin Dose 20 MG; Start 06/21/18 at 09:00 Acetaminophen (Tylenol Tab) 650 mg Q6H PRN PO MILD PAIN(1-3)OR ELEVATED TEMP Last administered on 06/26/18 15:57; Admin Dose 650 MG; Start 06/21/18 at 08:00 Belladonna Alkaloids/Opium (B&O No.15a) 1 supp QID PRN [place] PAIN LEVEL 4-6 Last administered on 06/25/18 17:32; Admin Dose 1 SUPP; Start 06/21/18 at 09:00 Tamsulosin HCl (Flomax) 0.4 mg HS PO Last administered on 07/02/18 21:04; Admin Dose 0.4 MG; Start 06/21/18 at 21:00 Finasteride (Proscar) 5 mg DAILY PO Last administered on 07/03/18 08:30; Admin Dose 5 MG; Start 06/21/18 at 09:00 Lactulose (Enulose) 20 gm DAILY PO Last administered on 07/03/18 08:30; Admin Dose 20 GM; Start 06/22/18 at 10:00 Alprazolam (Xanax) 0.5 mg Q4H PRN PO ANXIETY Last administered on 07/02/18 22:57; Admin Dose 0.5 MG; Start 06/22/18 at 19:00 Acetaminophen/ Hydrocodone Bitart ([place] (5/325)) 1 tab Q4H PRN PO PAIN; Start 06/23/18 at 11:30 Docusate Sodium (Colace) 100 mg BID PO Last administered on 07/03/18 08:30; Admin Dose 100 MG; Start 06/23/18 at 21:00 Magnesium Hydroxide (Milk Of Mag) 30 ml DAILY PRN PO CONSTIPATION Last administered on 06/28/18 05:55; Admin Dose 30 ML; Start 06/23/18 at 11:30 Ciprofloxacin (Cipro) 500 mg BID@18 PO Last administered on 07/03/18 06:09; Admin Dose 500 MG; Start 06/25/18 at 18:00 Morphine Sulfate (morphine) 2 mg Q3H PRN IV SEVERE PAIN LEVEL 7-10; Start 06/25/18 at 16:30 Ferrous Sulfate (Ferrous Sulfate (Ec)) 325 mg BID PO Last administered on 07/03/18 08:29; Admin Dose 325 MG; Start 06/30/18 at 09:00 VTE Prophylaxis Risk score (from Nsg)>0 risk: 7 SCD applied (from Nsg): Yes Lines/Catheters IV Catheter Type: Saline Lock Johnson in Place: Yes Cont'd johnson catheter reason: urinary retention Assessment/Plan Assessment/Plan Persistent gross hematuria Status post suprapubic prostatectomy Anemia stable Acute kidney injury Continue bladder irrigation Urology follow-up HARISH SRINIVASAN MD July 03, 2018 09:04
--- NOTE | 2018-07-03 10:03 | PN ---
Date/Time of Note Date/Time of Note DATE: 07/03/18 TIME: 10:01 Assessment/Plan Lines/Catheters IV Catheter Type (from [facility]): Saline Lock Simon in Place (from [facility]): Yes Assessment/Plan Chief Complaint/Hosp Course The patient is a 77-year-old male who had gross hematuria and urinary retention because of very large prostate. He underwent a suprapubic prostatectomy and then his catheter was removed. He still was not able to urinate. He had gross hematuria for which he was admitted to the hospital again. He underwent cystoscopy and evacuation of clots and fulguration of prostatic fossa bleeders. The prostate that was removed originally showed foci of prostate cancer. The size of the prostate was 290 g. The patient did also have a urinary tract infe ction and epididymitis. When the bladder irrigation was stopped he started having hematuria again and the irrigation was restarted again. I did deflate the balloon of the Simon catheter and it had about 90 mL in it. I advanced the catheter further into the bladder and reinflated the balloon with 100 mL of sterile water and put it under traction. I did release the traction on 07/02/2018. The return from the bladder irrigation is slight pink. We will stop the irrigation and keep the tubing con nected just in case we have to resume it. And if the urine remains slight pink to clear then we may be able to discharge him home tomorrow with a Simon catheter and a leg bag and then he will come to the office to have the catheter removed. Subjective 24 Hr Interval Summary The patient was sleeping. I woke him up and he is comfortable and denies having any pain. No events overnight Exam/Review of Systems Vital Signs Vitals Vital Signs Date Temp Pulse Resp B/P (MAP) Pulse Ox O2 O2 Flow FiO2 Time Delivery Rate 07/03/18 97.5 69 18 106/55 96 Room Air 08:02 (72) Intake and Output 07/02/18 07/02/18 07/03/18 1515:00 23:00 07:00 IntakeIntake Total 840 ml 1140 ml 60 ml OutputOutput Total 2950 ml 1500 ml BalanceBalance -2110 ml -360 ml 60 ml Exam Free Text/Dictation The Simon catheter is in place and draining slight blood-tinged urine with the bladder irrigation. Results Result Diagram: 07/03/18 0428 07/03/18 0428 ASHLEY VAUGHAN MD July 03, 2018 10:03
[2018-07-03 14:00] VITALS: BP 122/58; PULSE 72; RESP 18
[2018-07-03 19:50] VITALS: BP 137/63; PULSE 74; RESP 18
[2018-07-03] MEDS: TAMSULOSIN (SR) 0.4 MG CAP PO SCH (20:57)
[2018-07-03] MEDS: ALPRAZOLAM 0.5 MG TAB PO PRN (23:01)
[2018-07-04 02:00] VITALS: BP 128/60; PULSE 67; RESP 18
[2018-07-04] MEDS: CIPROFLOXACIN 500 MG TAB PO SCH (06:02)
[2018-07-04 08:26] VITALS: BP 117/56; PULSE 76; RESP 18
[2018-07-04] MEDS: LACTULOSE 30ML CUP PO SCH (09:03)
[2018-07-04] MEDS: FINASTERIDE 5 MG TAB PO SCH (09:03)
[2018-07-04] MEDS: ALLOPURINOL 300 MG TAB PO SCH (09:03)
[2018-07-04] MEDS: DOCUSATE SODIUM 100 MG CAP PO SCH (09:03)
[2018-07-04] MEDS: LISINOPRIL 20 MG TAB PO SCH (09:04)
[2018-07-04] MEDS: FERROUS SULFATE (EC) 325 MG TAB PO SCH (09:04)
[2018-07-04] MEDS: AMLODIPINE 10 MG TAB PO SCH (09:04)
--- NOTE | 2018-07-04 09:50 | PN ---
Date/Time of Note Date/Time of Note DATE: 07/04/18 TIME: 09:47 Subjective Alert and comfortable. No complaint of pain. Objective Vitals Vital Signs Date Temp Pulse Resp B/P (MAP) Pulse Ox O2 O2 Flow FiO2 Time Delivery Rate 07/04/18 97.6 76 18 117/56 98 08:26 (76) 07/03/18 Room Air 14:00 Intake and Output 07/03/18 07/03/18 07/04/18 1515:00 23:00 07:00 IntakeIntake Total 3000 ml 900 ml 820 ml OutputOutput Total 3900 ml 4800 ml 900 ml BalanceBalance -900 ml -3900 ml -80 ml Clear to auscultation bilaterally Regular rate and rhythm Soft nontender nondistended normoactive bowel sounds Johnson with bloody urine No edema Nonfocal Results Result Diagram: 07/04/18 0424 07/04/18 0421 Medications Medications Current Medications Allopurinol (Zyloprim) 300 mg DAILY PO Last administered on 07/04/18 09:03; Admin Dose 300 MG; Start 06/21/18 at 09:00 Amlodipine Besylate (Norvasc) 10 mg DAILY PO Last administered on 07/04/18 09:04; Admin Dose 10 MG; Start 06/21/18 at 09:00 Lisinopril (Zestril) 20 mg DAILY PO Last administered on 07/04/18 09:04; Admin Dose 20 MG; Start 06/21/18 at 09:00 Acetaminophen (Tylenol Tab) 650 mg Q6H PRN PO MILD PAIN(1-3)OR ELEVATED TEMP Last administered on 06/26/18 15:57; Admin Dose 650 MG; Start 06/21/18 at 08:00 Belladonna Alkaloids/Opium (B&O No.15a) 1 supp QID PRN [place] PAIN LEVEL 4-6 Last administered on 06/25/18 17:32; Admin Dose 1 SUPP; Start 06/21/18 at 09:00 Tamsulosin HCl (Flomax) 0.4 mg HS PO Last administered on 07/03/18 20:57; Adm in Dose 0.4 MG; Start 06/21/18 at 21:00 Finasteride (Proscar) 5 mg DAILY PO Last administered on 07/04/18 09:03; Admin Dose 5 MG; Start 06/21/18 at 09:00 Lactulose (Enulose) 20 gm DAILY PO Last administered on 07/04/18 09:03; Admin Dose 20 GM; Start 06/22/18 at 10:00 Alprazolam (Xanax) 0.5 mg Q4H PRN PO ANXIETY Last administered on 07/03/18 23:01; Admin Dose 0.5 MG; Start 06/22/18 at 19:00 Acetaminophen/ Hydrocodone Bitart ([place] (5/325)) 1 tab Q4H PRN PO PAIN; Start 06/23/18 at 11:30 Docusate Sodium (Colace) 100 mg BID PO Last administered on 07/04/18 09:03; Admin Dose 100 MG; Start 06/23/18 at 21:00 Magnesium Hydroxide (Milk Of Mag) 30 ml DAILY PRN PO CONSTIPATION Last administered on 06/28/18 05:55; Admin Dose 30 ML; Start 06/23/18 at 11:30 Ciprofloxacin (Cipro) 500 mg BID@18 PO Last administered on 07/04/18 06:02; Admin Dose 500 MG; Start 06/25/18 at 18:00 Morphine Sulfate (morphine) 2 mg Q3H PRN IV SEVERE PAIN LEVEL 7-10; Start 06/25/18 at 16:30 Ferrous Sulfate (Ferrous Sulfate (Ec)) 325 mg BID PO Last administered on 07/04/18 09:04; Admin Dose 325 MG; Start 06/30/18 at 09:00 VTE Prophylaxis Risk score (from Nsg)>0 risk: 6 SCD applied (from Nsg): Yes Lines/Catheters IV Catheter Type: Saline Lock Johnson in Place: Yes Cont'd johnson catheter reason: urinary retention Assessment/Plan Assessment/Plan Persistent gross hematuria Status post suprapubic prostatectomy Acute blood loss anemia, stable Acute kidney injury, resolved Continue bladder irrigation Urology follow-up Discharge planning once hematuria is resolved HARISH SRINIVASAN MD July 04, 2018 09:50
[2018-07-04] MEDS ORDERED: TAMS-14 PO (10:31)
[2018-07-04] MEDS ORDERED: FINA5TAB4 PO (10:31)
--- NOTE | 2018-07-04 10:32 | PDOCDIS ---
Discharge Instructions CONDITION [id number] Patient Condition: [id number] Good HOME CARE INSTRUCTIONS: [id number] Diet Instructions: [id number] FOLLOW UP/APPOINTMENTS Follow-up Plan pcp [address] Alba 3 days HARISH SRINIVASAN MD July 04, 2018 10:32
--- NOTE | 2018-07-04 10:58 | PN ---
Date/Time of Note Date/Time of Note DATE: 07/04/18 TIME: 10:53 Assessment/Plan Lines/Catheters IV Catheter Type (from [facility]): Saline Lock Simon in Place (from [facility]): Yes Assessment/Plan Chief Complaint/Hosp Course The patient is a 77-year-old male who had gross hematuria and urinary retention because of very large prostate. He underwent a suprapubic prostatectomy and then his catheter was removed. He still was not able to urinate. He had gross hematuria for which he was admitted to the hospital again. He underwent cystoscopy and evacuation of clots and fulguration of prostatic fossa bleeders. The prostate that was removed originally showed foci of prostate cancer. The size of the prostate was 290 g. The patient did also have a urinary tract infe ction and epididymitis. Clinically the abdomen is soft, the bladder is not distended. The Simon cat heter is draining blood tinged urine. It is old blood and not a fresh blood. Very tiny blood clots are noticed some time. The irrigation was stopped yesterday and he had no retention and the Simon catheter continues to drain well. Patient may be discharged home today with a Simon catheter and a leg bag. Plug the irrigation port with a catheter plug. Patient should call my office on Thursday to make an appointment for Thursday or of next week. Then I will decide whether to take the catheter out or wait longer. He completed a 10 days of Cipro. Therefore he could go home without antibiotic. He will need Colace to keep his bowels soft. And continue the ferrous sulfate. Subjective 24 Hr Interval Summary The patient is comfortable and has no pain. He does have some blood around the catheter. Exam/Review of Systems Vital Signs Vitals Vital Signs Date Temp Pulse Resp B/P (MAP) Pulse Ox O2 O2 Flow FiO2 Time Delivery Rate 07/04/18 97.6 76 18 117/56 98 08:26 (76) 07/03/18 Room Air 14:00 Intake and Output 07/03/18 07/03/18 07/04/18 1515:00 23:00 07:00 IntakeIntake Total 3000 ml 900 ml 820 ml OutputOutput Total 3900 ml 4800 ml 900 ml BalanceBalance -900 ml -3900 ml -80 ml Exam Free Text/Dictation The abdomen is soft, the bladder is not distended. The Simon catheter is draining blood tinged urine. It is old blood and not a fresh blood. Very tiny blood clots are noticed some time. The irrigation was stopped yesterday and he had no retention and the Simon catheter continues to drain well. Results Result Diagram: 07/04/18 0424 07/04/18 0421 ASHLEY VAUGHAN MD July 04, 2018 10:58
--- NOTE | 2018-07-04 17:20 | DS ---
DATE OF ADMISSION: 06/21/2018 DATE OF DISCHARGE: DISCHARGE DIAGNOSES: 1. A 77-year-old male with persistent gross hematuria. 2. Status post suprapubic prostatectomy 2 weeks prior to admission. 3. Acute kidney injury, resolved. 4. Acute blood loss anemia, stable. 5. Hypertension. 6. Gout. HOSPITAL COURSE: A 77-year-old male status post suprapubic prostatectomy about 2 weeks prior to admi ssion, was readmitted after he had persistent gross hematuria. The patient required continuous bladd er irrigation during the hospitalization. He was seen in consultation by Dr. Rankin and Dr. Alba. Proscar and Flomax were continued. The patient remained asymptomatic during the hospitalization. H e is in a stable condition for discharge to home with home health nurse. Dr. Alba requested disch arge. He will see the patient in the clinic. MEDICATIONS ON DISCHARGE: 1. Allopurinol 300 mg daily. 2. Amlodipine 10 mg daily. 3. Cipro 500 mg b.i.d. 4. Lisinopril 20 mg daily. 5. Proscar 5 mg daily. 6. Flomax 0.4 mg daily. FOLLOWUP: With PCP in 1 week. Follow up with Dr. Alba in 3 days. Dictated By: HARISH SHAH/NTS Conf#: [id number] DID#: [id number] CC: ASHLEY ALBA MD;*EndCC*
== END 2018-07-04 17:37 | disposition home or self-care (01) | DRG 988 ==
LOC: E/R 01:55 → PP2 03:01 → ICU 06-25 09:24 → MS1 06-27 18:04
PROVIDERS: ADMIT Internal Medicine; ATTEND Internal Medicine
PROC: 0TJB8ZZ Inspection of Bladder, Via Natural or Artificial Opening Endoscopic (ICD-10-PCS; 2018-06-23)
PROC: 0TCB8ZZ Extirpation of Matter from Bladder, Via Natural or Artificial Opening Endoscopic (ICD-10-PCS; 2018-06-23)
PROC: 30233N1 Transfusion of Nonautologous Red Blood Cells into Peripheral Vein, Percutaneous Approach (ICD-10-PCS; 2018-06-23)
PROC: 0VB08ZZ Excision of Prostate, Via Natural or Artificial Opening Endoscopic (ICD-10-PCS; principal; 2018-06-23 09:00)
PROC: 0TPBX0Z Removal of Drainage Device from Bladder, External Approach (ICD-10-PCS; 2018-06-25)
PROC: 0T9B70Z Drainage of Bladder with Drainage Device, Via Natural or Artificial Opening (ICD-10-PCS; 2018-06-25)
DX: N99.820 Postprocedural hemorrhage of a genitourinary system organ or structure following a genitourinary system procedure (principal); D62 Acute posthemorrhagic anemia; D68.8 Other specified coagulation defects; N17.9 Acute kidney failure, unspecified; R31.0 Gross hematuria; D72.829 Elevated white blood cell count, unspecified; I10 Essential (primary) hypertension; M10.9 Gout, unspecified; N40.1 Benign prostatic hyperplasia with lower urinary tract symptoms; R39.198 Other difficulties with micturition; T83.021A Displacement of indwelling urethral catheter, initial encounter; Y83.8 Other surgical procedures as the cause of abnormal reaction of the patient, or of later complication, without mention of misadventure at the time of the procedure
CPT/HCPCS: 36415; 36430; 71046; 74176; 80048; 81001; 85014; 85018; 85025; 85335; 85378; 85384; 85576; 85610; 85730; 86644; 86850; 86900; 86901; 86920; 87081; 87086; 88304; 88305; 93005; 96374; 96375; 97116; 97162; 97530; J0696; J0744; J1170; J2060; J2250; J2270; J2370; J2405; J3010; J7042; J7050; P9016